=== PATIENT | male | born 1935 | race Caucasian/White ===

== ENCOUNTER 2020-05-29 16:42 | Inpatient (IN) | payer MEDICARE ==
[~2020-05-29] VITALS: Ht 175.3 cm; Wt 86.5 kg
[2020-05-29 20:00] VITALS: BP 162/78
[2020-05-29] MEDS: NS 1,000 ML IV SCH (20:50)
[2020-05-29] MEDS ORDERED: HumaLOG INSULIN (NovoLOG) PER UNIT SC SCH (21:00)
[2020-05-29] MEDS: HEPARIN SOD (PORCINE) 5000UNITS/ML 1ML VIAL/SYRINGE SC SCH (21:00)
[2020-05-29] MEDS ORDERED: ACETAMINOPHEN TAB 650MG DOSE (2X325MG) PO PRN (21:00)
[2020-05-29] MEDS ORDERED: GLUCAGON INJ 1MG VIAL SC PRN (21:45)
[2020-05-29] MEDS ORDERED: DEXTROSE 50% 50 ML SYRINGE IV PRN (21:45)
[2020-05-29] MEDS ORDERED: GLUCOSE 4GM CHEW TABLET PO PRN (21:45)
--- NOTE | 2020-05-29 21:45 | HPEPDOC ---
[facility] Medical History & Physical Date of Admission May 29, 2020 Date of Service: May 29, 2020 History and Physical CHIEF COMPLAINT: Transfer for near syncope and hyponatremia HISTORY OF PRESENT ILLNESS: Patient is a 4-year-old male with history of diabetes type 2, hypertension, CAD c/b IA, dementia, GERD, depression who presents from outside hospital for near syncope and hyponatremia. Patient recently discharged from hospital for after being treated for hyponatremia and fall at home. Patient says he went home, felt very weak and had a near-syncopal episode at home due to extreme weakness. Patient presented to the emergency room for further evaluation and treatment. Patient presented to Outside Hospital was found to be hyponatremic to 116, chloride 83, mag 1.2. As the patient was recently treated at outside hospital for similar presentation of hyponatremia and had a rapid decline back to hyponatremic state patient was transferred to [facility] for ongoing evaluation and treatment. Patient endorses lightheadedness and dizziness during the episode, but otherwise denies any fevers, chills, chest pain, difficulty breathing, nausea, vomiting, abdominal pain, dysuria, diarrhea, leg pain or swelling. Patient has any cough or sore throat but does note feeling dry mouth. PAST MEDICAL HISTORY: 1. Diabetes type 2. 2., Hypertension. 3., CAD. 4. Dementia. 5. Depression. 6. GERD PAST SURGICAL HISTORY: Patient denies any surgical history SOCIAL HISTORY: Marital status: , lives with Tobacco use: Former smoker ETOH: Former heavy EtOH use Illicit drug use: Denies any illicit drug use FAMILY HISTORY: Diabetes ALLERGIES: Please see below. REVIEW OF SYSTEMS: 14 point ROS reviewed and pertinent pos and neg documented as per HPI. All other reviewed ROS neg. HOME MEDICATIONS: Please see below. PHYSICAL EXAMINATION: VITAL SIGNS: See below GENERAL APPEARANCE: Confused appearing man laying in bed in no acute distress, pleasant on interview, appears younger than stated age HEENT: PERRL, EOMI, OP clear, dry mucous membranes, fissured tongue CARDIOVASCULAR:. RRR, normal S1/2, + murmur. LUNGS: CTA B/L, no W/R/R. ABDOMEN: Soft, nontender, nondistended. MUSCULOSKELETAL:, Normal tone. EXTREMITIES:. Intact distal pulses, no edema. NEUROLOGICAL: Strength appears to be intact, sensation intact, cranial nerves intact PSYCHIATRIC: Intermittently confused during my evaluation, mood appropriate LABORATORY DATA: See below. IMAGING: Chest x-ray pending MICROBIOLOGY: Please see below. ASSESSMENT: Patient is a 84-year-old male with history of diabetes type 2, hypertension, CAD c/b IA, dementia, GERD, depression who presents from outside hospital for near syncope and hyponatremia to 116 in the setting of recent discharge from the hospital with similar presentation. Suspect patient's presentation related to hypovolemic hyponatremia, unclear etiology. While citalopram can cause hyponatremia it is a fairly rare occurrence but will stop citalopram given repeat occurrences of hyponatremia. Will hydrate trend BMP. . PLAN: #Hypovolemic hyponatremia Admit to inpatient with telemetry. Intravenous fluids Trend BMP for sodium Monitor neurologic exam. Monitor mental status exam. Follow up chest x-ray #Hypomagnesemia. And magnesium 1.2 at outside hospital labs Status post magnesium repletion Trend magnesium #Diabetes. Fingerstick glucose Insulin sliding scale. ADA/cardiac diet #CAD Continue home meds #Depression. Will hold citalopram in the setting of hyponatremia Continue to monitor #GERD. Continue home meds #Hypertension Trend BP Continue home meds #Dementia. Continue home meds DVT PPX: Lovenox Disposition: Home pending clinical improvement Vital Signs Vital Signs Date Time Temp Pulse Resp B/P (MAP) Pulse Ox O2 Delivery O2 Flow Rate FiO2 05/29/20 20:00 96.6 76 18 162/78 (106) 94 JEANNETTE REAL MD May 29, 2020 21:45
[2020-05-29 22:01] LABS: HEMATOCRIT 32.3 % (42.0-52.0); MEAN CORPUSCULAR HEMOGLOBIN 29.9 pg (27.0-33.0); MEAN CORPUSCULAR HGB CONC 34.1 g/dl (32.0-36.5); MEAN CORPUSCULAR VOLUME 87.8 fl (80.0-96.0); PLATELET COUNT, AUTOMATED 373 10^3/uL (150-450); RED BLOOD COUNT 3.68 10^6/uL (4.30-6.10); WHITE BLOOD COUNT 11.7 10^3/uL (4.0-10.0)
[2020-05-29] MEDS ORDERED: LOSA25TA14 PO (22:22)
[2020-05-29] MEDS ORDERED: ASPI-161 PO (22:22)
[2020-05-29] MEDS ORDERED: METF-877 PO (22:22)
[2020-05-29] MEDS ORDERED: FLON1SPR (22:22)
[2020-05-29] MEDS ORDERED: DOCU100C16 PO (22:22)
[2020-05-29] MEDS ORDERED: MELO15TA28 PO (22:22)
[2020-05-29] MEDS ORDERED: OMEP-221 PO (22:29)
[2020-05-29] MEDS ORDERED: MELA3TAB30 PO (22:29)
[2020-05-29] MEDS ORDERED: CELE40TA PO (22:29)
[2020-05-29] MEDS ORDERED: BUSP15TA47 PO (22:29)
[2020-05-29] MEDS ORDERED: SIMV40TA20 PO (22:29)
[2020-05-29] MEDS ORDERED: MAGN400T3 PO (22:29)
[2020-05-29] MEDS ORDERED: VITA500T41 PO (22:29)
[2020-05-29] MEDS ORDERED: VITATAB73 PO (22:29)
[2020-05-29] MEDS ORDERED: CALC500T61 PO (22:29)
[2020-05-29] MEDS ORDERED: DONE10TA90 PO (22:29)
[2020-05-29] MEDS ORDERED: GLIP5TAB8 PO (22:29)
[2020-05-29] MEDS ORDERED: SODI1TAB6 PO (22:29)
[2020-05-29] MEDS ORDERED: VITMTA PO (22:29)
[2020-05-29] MEDS ORDERED: GABA-845 PO (22:29)
[2020-05-29] MEDS ORDERED: BUSP10TA PO (22:29)
[2020-05-29 22:42] LABS: ALBUMIN 3.2 GM/DL (3.2-5.2); ALT/SGPT 25 U/L (12-78); BILIRUBIN,TOTAL 0.3 MG/DL (0.2-1.0); BLOOD UREA NITROGEN 12 MG/DL (7-18); CALCIUM LEVEL 8.6 MG/DL (8.8-10.2); CARBON DIOXIDE LEVEL 27 MEQ/L (21-32); CHLORIDE LEVEL 86 MEQ/L (98-107); GLOMERULAR FILTRATION RATE > 60.0 (>35); GLUCOSE, FASTING 126 MG/DL (70-100); MAGNESIUM LEVEL 1.6 MG/DL (1.8-2.4); POTASSIUM SERUM 4.1 MEQ/L (3.5-5.1); SODIUM LEVEL 120 MEQ/L (136-145); TOTAL PROTEIN 6.4 GM/DL (6.4-8.2)
[2020-05-29 23:23] LABS: CREATININE,RANDOM URINE 44.8 MG/DL
[2020-05-30] VITALS: BP 152/84
[2020-05-30 04:00] VITALS: BP 138/70
[2020-05-30] MEDS: NS 1,000 ML IV SCH (04:40)
[2020-05-30 05:19] LABS: HEMATOCRIT 28.1 % (42.0-52.0); HEMOGLOBIN 9.5 g/dl (13.5-17.5); MEAN CORPUSCULAR HEMOGLOBIN 29.4 pg (27.0-33.0); MEAN CORPUSCULAR HGB CONC 33.8 g/dl (32.0-36.5); PLATELET COUNT, AUTOMATED 305 10^3/uL (150-450); RED BLOOD COUNT 3.23 10^6/uL (4.30-6.10); WHITE BLOOD COUNT 8.7 10^3/uL (4.0-10.0)
[2020-05-30 05:41] LABS: BLOOD UREA NITROGEN 8 MG/DL (7-18); CALCIUM LEVEL 7.8 MG/DL (8.8-10.2); CARBON DIOXIDE LEVEL 26 MEQ/L (21-32); CHLORIDE LEVEL 89 MEQ/L (98-107); CREATININE FOR GFR 0.75 MG/DL (0.70-1.30); GLOMERULAR FILTRATION RATE > 60.0 (>35); GLUCOSE, FASTING 124 MG/DL (70-100); MAGNESIUM LEVEL 1.6 MG/DL (1.8-2.4); POTASSIUM SERUM 3.6 MEQ/L (3.5-5.1); SODIUM LEVEL 123 MEQ/L (136-145)
[2020-05-30] MEDS ORDERED: HumaLOG INSULIN (NovoLOG) PER UNIT SC SCH (07:30)
--- NOTE | 2020-05-30 07:31 | REP ---
Clinical: Hyponatremia. Comparison: None. Findings: Mediastinum and cardiac silhouette are within normal limits for portable technique. Lung arenas are are relatively clear without focal consolidation, effusion, or pneumothorax. Skeletal structures demonstrate age-related osteopenia and degenerative changes. Impression: No focal consolidation or effusion. Electronically Signed by Yariel Wright MD 05/30/2020 07:21 A
[2020-05-30 08:00] VITALS: BP 162/80
[2020-05-30] MEDS: MAG SULF 1GM/100ML (MAG RUN) 1 GM in IV 1 EA IV SCH ×2 (09:00→09:37)
[2020-05-30] MEDS ORDERED: D5W 1,000 ML IV SCH (09:00)
[2020-05-30 09:29] LABS: BLOOD UREA NITROGEN 8 MG/DL (7-18); CALCIUM LEVEL 8.6 MG/DL (8.8-10.2); CARBON DIOXIDE LEVEL 27 MEQ/L (21-32); CHLORIDE LEVEL 90 MEQ/L (98-107); CREATININE FOR GFR 0.86 MG/DL (0.70-1.30); GLOMERULAR FILTRATION RATE > 60.0 (>35); GLUCOSE, FASTING 167 MG/DL (70-100); POTASSIUM SERUM 4.1 MEQ/L (3.5-5.1); SODIUM LEVEL 123 MEQ/L (136-145)
[2020-05-30] MEDS: HEPARIN SOD (PORCINE) 5000UNITS/ML 1ML VIAL/SYRINGE SC SCH (09:38)
[2020-06-01] MEDS ORDERED: GABAPENTIN 400 MG CAP As Ordered ONE ×2 (08:27→21:48)
[2020-06-01] MEDS ORDERED: CYANOCOBALAMIN 500 MCG TAB As Ordered ONE ×2 (08:28→21:48)
[2020-06-01] MEDS ORDERED: ASPIRIN 81 MG ENTERIC TAB ONE (08:28)
[2020-06-01] MEDS ORDERED: OYSTER SHELL CALCIUM 500 MG TAB ONE ×2 (08:28→21:48)
[2020-06-01] MEDS ORDERED: OMEPRAZOLE 20 MG CAP As Ordered ONE (08:28)
[2020-06-01] MEDS ORDERED: GABAPENTIN 400 MG CAP ONE ×2 (08:28→21:48)
[2020-06-01] MEDS ORDERED: OMEPRAZOLE 20 MG CAP ONE (08:28)
[2020-06-01] MEDS ORDERED: CYANOCOBALAMIN 500 MCG TAB ONE ×2 (08:28→21:48)
[2020-06-01] MEDS ORDERED: busPIRone 10 MG TAB ONE ×2 (08:28→11:30)
[2020-06-01] MEDS ORDERED: ASPIRIN 81 MG ENTERIC TAB As Ordered ONE (08:29)
[2020-06-01] MEDS ORDERED: busPIRone 5 MG TAB ONE ×2 (11:30→21:48)
[2020-06-01] MEDS ORDERED: SODIUM CHLORIDE 1 GM TAB ONE ×2 (13:59→21:48)
[2020-06-01] MEDS ORDERED: MAGNESIUM OXIDE 400 MG TAB (MAG-OX) ONE ×2 (14:02→21:48)
[2020-06-01] MEDS ORDERED: MAGNESIUM OXIDE 400 MG TAB (MAG-OX) As Ordered ONE ×2 (14:02→21:48)
[2020-06-01] MEDS ORDERED: LOSARTAN 25 MG TAB ONE (21:48)
[2020-06-01] MEDS ORDERED: LOSARTAN 25 MG TAB As Ordered ONE (21:48)
[2020-06-01] MEDS ORDERED: RAMELTEON 8 MG TAB (ROZEREM) ONE (21:48)
[2020-06-01] MEDS ORDERED: HEPARIN SOD (PORCINE) 5000UNITS/ML 1ML VIAL/SYRINGE ONE (21:48)
[2020-06-01] MEDS ORDERED: SIMVASTATIN 40 MG TAB ONE (21:48)
[2020-06-01] MEDS ORDERED: RAMELTEON 8 MG TAB (ROZEREM) As Ordered ONE (21:48)
[2020-06-01] MEDS ORDERED: SIMVASTATIN 40 MG TAB As Ordered ONE (21:49)
[2020-06-02] MEDS ORDERED: HEPARIN SOD (PORCINE) 5000UNITS/ML 1ML VIAL/SYRINGE ONE ×2 (10:21→20:24)
[2020-06-02] MEDS ORDERED: OYSTER SHELL CALCIUM 500 MG TAB ONE ×2 (10:21→20:24)
[2020-06-02] MEDS ORDERED: GABAPENTIN 400 MG CAP As Ordered ONE ×2 (10:21→20:24)
[2020-06-02] MEDS ORDERED: busPIRone 10 MG TAB ONE (10:21)
[2020-06-02] MEDS ORDERED: DOCUSATE SODIUM 100 MG CAP As Ordered ONE (10:21)
[2020-06-02] MEDS ORDERED: OMEPRAZOLE 20 MG CAP As Ordered ONE (10:21)
[2020-06-02] MEDS ORDERED: SODIUM CHLORIDE 1 GM TAB ONE (10:21)
[2020-06-02] MEDS ORDERED: MAGNESIUM OXIDE 400 MG TAB (MAG-OX) As Ordered ONE (10:22)
[2020-06-02] MEDS ORDERED: CYANOCOBALAMIN 500 MCG TAB As Ordered ONE ×2 (10:22→20:25)
[2020-06-02] MEDS ORDERED: ASPIRIN 81 MG ENTERIC TAB As Ordered ONE (10:23)
[2020-06-02] MEDS ORDERED: HumaLOG INSULIN (NovoLOG) PER UNIT ONE ×2 (11:47→17:16)
[2020-06-02] MEDS ORDERED: busPIRone 5 MG TAB ONE (20:24)
[2020-06-02] MEDS ORDERED: SIMVASTATIN 40 MG TAB As Ordered ONE (20:25)
[2020-06-02] MEDS ORDERED: LOSARTAN 25 MG TAB As Ordered ONE (20:25)
[2020-06-02] MEDS ORDERED: MAGNESIUM SULFATE 1GM/100ML D5W BAG (10MG/ML) As Ordered ONE (20:26)
[2020-06-02] MEDS ORDERED: RAMELTEON 8 MG TAB (ROZEREM) As Ordered ONE (20:31)
[2020-06-03] MEDS ORDERED: GABAPENTIN 400 MG CAP ONE ×2 (07:58→09:09)
[2020-06-03] MEDS ORDERED: HEPARIN SOD (PORCINE) 5000UNITS/ML 1ML VIAL/SYRINGE ONE ×2 (07:58→09:09)
[2020-06-03] MEDS ORDERED: busPIRone 5 MG TAB ONE (07:58)
[2020-06-03] MEDS ORDERED: MAGNESIUM OXIDE 400 MG TAB (MAG-OX) ONE ×2 (07:58→09:09)
[2020-06-03] MEDS ORDERED: OYSTER SHELL CALCIUM 500 MG TAB ONE ×2 (07:58→09:09)
[2020-06-03] MEDS ORDERED: LOSARTAN 25 MG TAB ONE (07:58)
[2020-06-03] MEDS ORDERED: RAMELTEON 8 MG TAB (ROZEREM) ONE (07:58)
[2020-06-03] MEDS ORDERED: CYANOCOBALAMIN 500 MCG TAB ONE ×2 (07:58→09:09)
[2020-06-03] MEDS ORDERED: SIMVASTATIN 40 MG TAB ONE (07:58)
[2020-06-03] MEDS ORDERED: ASPIRIN 81 MG ENTERIC TAB ONE (09:09)
[2020-06-03] MEDS ORDERED: SODIUM CHLORIDE 1 GM TAB ONE (09:09)
[2020-06-03] MEDS ORDERED: MAGNESIUM OXIDE 400 MG TAB (MAG-OX) As Ordered ONE ×2 (09:09→19:58)
[2020-06-03] MEDS ORDERED: GABAPENTIN 400 MG CAP As Ordered ONE ×2 (09:09→19:58)
[2020-06-03] MEDS ORDERED: OMEPRAZOLE 20 MG CAP As Ordered ONE (09:09)
[2020-06-03] MEDS ORDERED: OMEPRAZOLE 20 MG CAP ONE (09:09)
[2020-06-03] MEDS ORDERED: busPIRone 10 MG TAB ONE (09:09)
[2020-06-03] MEDS ORDERED: HumaLOG INSULIN (NovoLOG) PER UNIT ONE (09:09)
[2020-06-03] MEDS ORDERED: CYANOCOBALAMIN 500 MCG TAB As Ordered ONE ×2 (09:10→19:59)
[2020-06-03] MEDS ORDERED: ASPIRIN 81 MG ENTERIC TAB As Ordered ONE (09:11)
[2020-06-03] MEDS ORDERED: CALCIUM/VITAMIN D 500 MG TAB ONE (11:30)
[2020-06-03] MEDS ORDERED: RAMELTEON 8 MG TAB (ROZEREM) As Ordered ONE (19:58)
[2020-06-03] MEDS ORDERED: SIMVASTATIN 40 MG TAB As Ordered ONE (19:59)
[2020-06-03] MEDS ORDERED: LOSARTAN 25 MG TAB As Ordered ONE (19:59)
[2020-06-04] MEDS ORDERED: OYSTER SHELL CALCIUM 500 MG TAB ONE (08:12)
[2020-06-04] MEDS ORDERED: HEPARIN SOD (PORCINE) 5000UNITS/ML 1ML VIAL/SYRINGE ONE (08:12)
[2020-06-04] MEDS ORDERED: busPIRone 10 MG TAB ONE (08:12)
[2020-06-04] MEDS ORDERED: GABAPENTIN 400 MG CAP As Ordered ONE (08:12)
[2020-06-04] MEDS ORDERED: SODIUM CHLORIDE 1 GM TAB ONE (08:12)
[2020-06-04] MEDS ORDERED: MAGNESIUM OXIDE 400 MG TAB (MAG-OX) ONE (08:12)
[2020-06-04] MEDS ORDERED: OMEPRAZOLE 20 MG CAP As Ordered ONE (08:12)
[2020-06-04] MEDS ORDERED: HumaLOG INSULIN (NovoLOG) PER UNIT ONE (08:12)
[2020-06-04] MEDS ORDERED: MAGNESIUM OXIDE 400 MG TAB (MAG-OX) As Ordered ONE (08:13)
[2020-06-04] MEDS ORDERED: CYANOCOBALAMIN 500 MCG TAB As Ordered ONE (08:14)
[2020-06-04] MEDS ORDERED: ASPIRIN 81 MG ENTERIC TAB As Ordered ONE (08:15)
[2020-07-10 10:46] LABS: HEMATOCRIT 51.2 % (42.0-52.0); HEMOGLOBIN 16.3 g/dl (13.5-17.5); MEAN CORPUSCULAR HEMOGLOBIN 29.4 pg (27.0-33.0); MEAN CORPUSCULAR HGB CONC 31.8 g/dl (32.0-36.5); MEAN CORPUSCULAR VOLUME 92.4 fl (80.0-96.0); PLATELET COUNT, AUTOMATED 167 10^3/uL (150-450); RED BLOOD COUNT 5.54 10^6/uL (4.30-6.10); WHITE BLOOD COUNT 4.4 10^3/uL (4.0-10.0)
[2020-07-10 13:16] LABS: HEMATOCRIT 29.9 % (42.0-52.0); MEAN CORPUSCULAR HEMOGLOBIN 30.2 pg (27.0-33.0); MEAN CORPUSCULAR HGB CONC 32.8 g/dl (32.0-36.5); PLATELET COUNT, AUTOMATED 409 10^3/uL (150-450); RED BLOOD COUNT 3.25 10^6/uL (4.30-6.10); WHITE BLOOD COUNT 7.1 10^3/uL (4.0-10.0)
[2020-07-10 13:17] LABS: HEMOGLOBIN 9.8 g/dl (13.5-17.5)
[2020-07-13 07:41] LABS: BLOOD UREA NITROGEN 13 MG/DL (7-18); CALCIUM LEVEL 8.9 MG/DL (8.8-10.2); CARBON DIOXIDE LEVEL 30 MEQ/L (21-32); CHLORIDE LEVEL 100 MEQ/L (98-107); CREATININE FOR GFR 0.99 MG/DL (0.70-1.30); GLOMERULAR FILTRATION RATE > 60.0 (>35); GLUCOSE, FASTING 124 MG/DL (70-100); MAGNESIUM LEVEL 1.8 MG/DL (1.8-2.4); POTASSIUM SERUM 4.1 MEQ/L (3.5-5.1); SODIUM LEVEL 135 MEQ/L (136-145)
[2020-07-13 21:23] LABS: BLOOD UREA NITROGEN 15 MG/DL (7-18); CALCIUM LEVEL 9.2 MG/DL (8.8-10.2); CARBON DIOXIDE LEVEL 30 MEQ/L (21-32); CHLORIDE LEVEL 99 MEQ/L (98-107); CREATININE FOR GFR 1.03 MG/DL (0.70-1.30); GLOMERULAR FILTRATION RATE > 60.0 (>35); GLUCOSE, FASTING 132 MG/DL (70-100); MAGNESIUM LEVEL 1.9 MG/DL (1.8-2.4); POTASSIUM SERUM 4.5 MEQ/L (3.5-5.1); SODIUM LEVEL 136 MEQ/L (136-145)
[2020-07-15 22:27] LABS: HEMATOCRIT 31.6 % (42.0-52.0); HEMOGLOBIN 10.2 g/dl (13.5-17.5); MEAN CORPUSCULAR HEMOGLOBIN 29.9 pg (27.0-33.0); MEAN CORPUSCULAR HGB CONC 32.3 g/dl (32.0-36.5); MEAN CORPUSCULAR VOLUME 92.7 fl (80.0-96.0); PLATELET COUNT, AUTOMATED 398 10^3/uL (150-450); RED BLOOD COUNT 3.41 10^6/uL (4.30-6.10); WHITE BLOOD COUNT 7.6 10^3/uL (4.0-10.0)
[2020-07-16 08:16] LABS: GLUCOSE, FASTING 120 MG/DL (70-100)
[2020-07-16 08:17] LABS: BLOOD UREA NITROGEN 12 MG/DL (7-18); CARBON DIOXIDE LEVEL 29 mmol/L (20-29); CHLORIDE LEVEL 101 MEQ/L (98-107); CREATININE FOR GFR 0.95 MG/DL (0.70-1.30); GLOMERULAR FILTRATION RATE > 60.0 (>35); POTASSIUM SERUM 4.6 MEQ/L (3.5-5.1); SODIUM LEVEL 135 MEQ/L (136-145)
[2020-07-16 10:42] LABS: BLOOD UREA NITROGEN 14 MG/DL (7-18); CARBON DIOXIDE LEVEL 30 mmol/L (20-29); CHLORIDE LEVEL 102 MEQ/L (98-107); CREATININE FOR GFR 1.03 MG/DL (0.70-1.30); GLOMERULAR FILTRATION RATE > 60.0 (>35); GLUCOSE, FASTING 115 MG/DL (70-100); POTASSIUM SERUM 4.4 MEQ/L (3.5-5.1); SODIUM LEVEL 136 MEQ/L (136-145)
[2020-07-16 10:43] LABS: CALCIUM LEVEL 8.9 MG/DL (8.8-10.2)
[2020-07-17 14:44] LABS: RED BLOOD COUNT 3.46 10^6/uL (4.30-6.10); WHITE BLOOD COUNT 7.1 10^3/uL (4.0-10.0)
[2020-07-17 14:45] LABS: HEMATOCRIT 31.7 % (42.0-52.0); HEMOGLOBIN 10.4 g/dl (13.5-17.5); MEAN CORPUSCULAR HEMOGLOBIN 30.1 pg (27.0-33.0); MEAN CORPUSCULAR HGB CONC 32.8 g/dl (32.0-36.5); MEAN CORPUSCULAR VOLUME 91.6 fl (80.0-96.0); PLATELET COUNT, AUTOMATED 449 10^3/uL (150-450)
--- NOTE | 2020-08-01 11:33 | ECGEPIP ---
[facility] Test Date: 2020-06-02 Pat Name: PARUL WALTERS Department: Room: [place] [address] Gender: Male [employer]: SHIVANI : 1935 Requested By: TREY Amaya Order Number: [id number] Reading MD: Shawnee Navarro Measurements Intervals [place] Rate: 64 P: 28 NE: 244 QRS: -5 QRSD: 79 T: 79 QT: 428 QTc: 444 Interpretive Statements SINUS RHYTHM WITH FIRST DEGREE AV BLOCK STT ABN LAT LEADS SEE SCANNED DOWNTIME REPORT
== END 2020-06-04 11:20 | disposition home or self-care (01) | DRG 641 ==
LOC: M PCU 20:50
PROVIDERS: ADMIT Internal Medicine; ATTEND Internal Medicine
DX: E87.1 Hypo-osmolality and hyponatremia (principal); R55 Syncope and collapse; E11.9 Type 2 diabetes mellitus without complications; I10 Essential (primary) hypertension; T43.225A Adverse effect of selective serotonin reuptake inhibitors, initial encounter; I25.10 Atherosclerotic heart disease of native coronary artery without angina pectoris; F03.90 Unspecified dementia, unspecified severity, without behavioral disturbance, psychotic disturbance, mood disturbance, and anxiety; F32.9 Major depressive disorder, single episode, unspecified; K21.9 Gastro-esophageal reflux disease without esophagitis; E83.42 Hypomagnesemia; Z79.899 Other long term (current) drug therapy

== ENCOUNTER → 2024-01-14 | Outpatient (REF) | payer MEDICARE ==
[~2024-01-14] MED LIST: ASPI-615 PO; BUSP10TA PO; BUSP15TA47 PO; CALC500T61 PO; CELE40TA PO; DOCU100C16 PO; DONE10TA90 PO; FLON1SPR; GABA-284 PO; GLIP5TAB17 PO; LOSA25TA13 PO; MAGN400T33 PO; MELA3TAB30 PO; MELO15TA28 PO; METF-877 PO; OMEP40CA5 PO; SIMV40TA20 PO; SODI1TAB6 PO; VITA500T41 PO; VITATAB73 PO; VITMTA PO
[2024-01-14 12:21] LABS: BASO % 0.4 % (0.0-1.0); EOS # 0.6 10^3/uL (0.0-0.5); EOS % 8.3 % (0.0-3.0); HEMATOCRIT 39.6 % (42.0-52.0); HEMOGLOBIN 12.8 g/dl (13.5-17.5); LYMPH % 13.4 % (24.0-44.0); MEAN CORPUSCULAR HEMOGLOBIN 29.4 pg (27.0-33.0); MEAN CORPUSCULAR HGB CONC 32.3 g/dl (32.0-36.5); MONO # 0.9 10^3/uL (0.0-0.8); MONO % 12.2 % (2.0-8.0); NEUTROPHILS # 4.7 10^3/uL (1.5-8.5); NEUTROPHILS % 65.1 % (36.0-66.0); PLATELET COUNT, AUTOMATED 312 10^3/uL (150-450); RED BLOOD COUNT 4.35 10^6/uL (4.30-6.10); WHITE BLOOD COUNT 7.2 10^3/uL (4.0-10.0)
[2024-01-14 13:33] LABS: BLOOD UREA NITROGEN 30 MG/DL (9-23); CALCIUM LEVEL 8.2 MG/DL (8.3-10.6); CARBON DIOXIDE LEVEL 21 MMOL/L (20-31); CHLORIDE LEVEL 105 MMOL/L (98-107); CREATININE FOR GFR 1.02 MG/DL (0.70-1.30); GLOMERULAR FILTRATION RATE > 60.0 (>35); GLUCOSE, FASTING 106 MG/DL (74-106); POTASSIUM SERUM 4.3 MMOL/L (3.5-5.1); SODIUM LEVEL 134 MMOL/L (136-145)
== END ==
LOC: SKLAB2 11:18
PROVIDERS: ATTEND Internal Medicine
DX: R11.2 Nausea with vomiting, unspecified (principal); R19.7 Diarrhea, unspecified

== ENCOUNTER → 2024-01-17 | Outpatient (REF) | payer MEDICARE ==
[2024-01-17 13:07] LABS: BLOOD UREA NITROGEN 18 MG/DL (9-23); CALCIUM LEVEL 7.8 MG/DL (8.3-10.6); CARBON DIOXIDE LEVEL 22 MMOL/L (20-31); CHLORIDE LEVEL 104 MMOL/L (98-107); CREATININE FOR GFR 0.87 MG/DL (0.70-1.30); GLOMERULAR FILTRATION RATE > 60.0 (>35); GLUCOSE, FASTING 104 MG/DL (74-106); POTASSIUM SERUM 4.6 MMOL/L (3.5-5.1); SODIUM LEVEL 133 MMOL/L (136-145)
== END ==
LOC: SKLAB2 11:43
PROVIDERS: ATTEND Internal Medicine
DX: K52.9 Noninfective gastroenteritis and colitis, unspecified (principal)

== ENCOUNTER → 2024-02-08 | Outpatient (REF) | payer MEDICARE ==
[2024-02-08 13:51] LABS: ALBUMIN 3.1 G/DL (3.2-5.2); ALKALINE PHOSPHATASE 95 U/L (46-116); ALT/SGPT 10 U/L (7.0-40); AST/SGOT 13 U/L (<34); BILIRUBIN,TOTAL 0.5 MG/DL (0.3-1.2); BLOOD UREA NITROGEN 18 MG/DL (9-23); CALCIUM LEVEL 9.6 MG/DL (8.3-10.6); CARBON DIOXIDE LEVEL 28 MMOL/L (20-31); CHLORIDE LEVEL 98 MMOL/L (98-107); CREATININE FOR GFR 0.96 MG/DL (0.70-1.30); GLOMERULAR FILTRATION RATE > 60.0 (>35); GLUCOSE, FASTING 112 MG/DL (74-106); POTASSIUM SERUM 4.7 MMOL/L (3.5-5.1); SODIUM LEVEL 131 MMOL/L (136-145); TOTAL PROTEIN 6.3 G/DL (5.7-8.2)
== END ==
LOC: SKLAB2 07:53
PROVIDERS: ATTEND Internal Medicine
DX: I10 Essential (primary) hypertension (principal)

== ENCOUNTER → 2024-02-24 | Outpatient (REF) | payer MEDICARE | LOC: SKLAB4 15:52 | PROVIDERS: ATTEND Internal Medicine | DX: R91.8 Other nonspecific abnormal finding of lung field (principal) ==

== ENCOUNTER → 2024-02-24 | Outpatient (REF) | payer MEDICARE ==
[~2024-02-24] MED LIST changes: +ASPE4PAD TOP; +ASPI81CH33 PO; +ATOR1TAB21 PO; +CYMB1CAP4 PO; +LOPR1TAB6 PO
[2024-02-24 15:04] LABS: HEMATOCRIT 37.9 % (42.0-52.0); MEAN CORPUSCULAR HEMOGLOBIN 27.7 pg (27.0-33.0); MEAN CORPUSCULAR HGB CONC 31.7 g/dl (32.0-36.5); MEAN CORPUSCULAR VOLUME 87.5 fl (80.0-96.0); PLATELET COUNT, AUTOMATED 357 10^3/uL (150-450); RED BLOOD COUNT 4.33 10^6/uL (4.30-6.10)
[2024-02-24 15:36] LABS: ALBUMIN 3.1 G/DL (3.2-5.2); ALKALINE PHOSPHATASE 96 U/L (46-116); ALT/SGPT < 9 U/L (7.0-40); AST/SGOT 14 U/L (<34); BILIRUBIN,TOTAL 0.5 MG/DL (0.3-1.2); BLOOD UREA NITROGEN 23 MG/DL (9-23); CALCIUM LEVEL 9.5 MG/DL (8.3-10.6); CARBON DIOXIDE LEVEL 27 MMOL/L (20-31); CHLORIDE LEVEL 97 MMOL/L (98-107); CHOLESTEROL LEVEL 93 MG/DL (<200); CHOLESTEROL RISK RATIO 2.26 (<5); GLOMERULAR FILTRATION RATE > 60.0 (>35); GLUCOSE, FASTING 147 MG/DL (74-106); LDL CHOLESTEROL 27.8 MG/DL (<100); POTASSIUM SERUM 4.9 MMOL/L (3.5-5.1); SODIUM LEVEL 128 MMOL/L (136-145); TOTAL PROTEIN 6.1 G/DL (5.7-8.2); TRIGLYCERIDES LEVEL 121 MG/DL (<150)
[2024-02-24 16:55] LABS: MAGNESIUM LEVEL 1.7 MG/DL (1.8-2.4)
== END ==
LOC: SKLAB4 14:18
PROVIDERS: ATTEND Internal Medicine
DX: E78.5 Hyperlipidemia, unspecified (principal); R42 Dizziness and giddiness; R53.83 Other fatigue; R91.8 Other nonspecific abnormal finding of lung field; R94.31 Abnormal electrocardiogram [ECG] [EKG]

== ENCOUNTER → 2024-02-25 | Outpatient (REF) | payer MEDICARE ==
[2024-02-25 13:25] LABS: OSMOLALITY SERUM 284 MOSM/KG (280-301)
[2024-02-25 13:27] LABS: BLOOD UREA NITROGEN 21 MG/DL (9-23); CARBON DIOXIDE LEVEL 28 MMOL/L (20-31); CHLORIDE LEVEL 99 MMOL/L (98-107); CREATININE FOR GFR 0.86 MG/DL (0.70-1.30); GLOMERULAR FILTRATION RATE > 60.0 (>35); GLUCOSE, FASTING 154 MG/DL (74-106); POTASSIUM SERUM 4.9 MMOL/L (3.5-5.1); SODIUM LEVEL 128 MMOL/L (136-145)
== END ==
LOC: SKLAB4 10:48
PROVIDERS: ATTEND Nurse Practitioner Family
DX: R06.02 Shortness of breath (principal)

== ENCOUNTER → 2024-02-25 | Outpatient (CLI) | payer MEDICARE, MEDICAID ==
[~2024-02-25] MED LIST changes: +ACET-907 PO; +ACET650T61 PO; +ELIQ5TAB PO; +GABA-282 PO; +LIDO1CRE2 TOP; +MAGN400T2 PO; +MELA3TAB29 PO; +METO50TA7 PO
== END ==
LOC: M EKG 10:17
PROVIDERS: ATTEND Internal Medicine
DX: I48.91 Unspecified atrial fibrillation (principal)

== ENCOUNTER 2024-02-27 13:16 | Emergency (ER) | payer MEDICARE ==
[~2024-02-27] VITALS: Ht 172.7 cm; Wt 78.1 kg
[~2024-02-27 13:16] MED LIST changes: -ACET-907 PO; -ACET650T61 PO; -ASPE4PAD TOP; -ASPI81CH33 PO; -ATOR1TAB21 PO; -CYMB1CAP4 PO; -ELIQ5TAB PO; -GABA-282 PO; -LIDO1CRE2 TOP; -LOPR1TAB6 PO; -MAGN400T2 PO; -MELA3TAB29 PO; -METO50TA7 PO
[2024-02-27 13:30] VITALS: TEMP 98.5
[2024-02-27 14:20] LABS: BASO % 0.4 % (0.0-1.0); EOS # 0.4 10^3/uL (0.0-0.5); EOS % 3.7 % (0.0-3.0); HEMATOCRIT 40.2 % (42.0-52.0); HEMOGLOBIN 13.2 g/dl (13.5-17.5); LYMPH % 21.2 % (24.0-44.0); MEAN CORPUSCULAR HEMOGLOBIN 27.7 pg (27.0-33.0); MEAN CORPUSCULAR HGB CONC 32.8 g/dl (32.0-36.5); MEAN CORPUSCULAR VOLUME 84.5 fl (80.0-96.0); MONO # 1.1 10^3/uL (0.0-0.8); MONO % 11.5 % (2.0-8.0); NEUTROPHILS # 5.9 10^3/uL (1.5-8.5); NEUTROPHILS % 62.9 % (36.0-66.0); PLATELET COUNT, AUTOMATED 375 10^3/uL (150-450); RED BLOOD COUNT 4.76 10^6/uL (4.30-6.10); WHITE BLOOD COUNT 9.4 10^3/uL (4.0-10.0)
[2024-02-27 14:35] LABS: LIPASE 35 U/L (12-53)
[2024-02-27 14:40] LABS: ALBUMIN 3.3 G/DL (3.2-5.2); ALKALINE PHOSPHATASE 110 U/L (46-116); ALT/SGPT 17 U/L (7.0-40); AST/SGOT 14 U/L (<34); BILIRUBIN,DIRECT 0.4 MG/DL (<0.4); BILIRUBIN,TOTAL 0.9 MG/DL (0.3-1.2); BLOOD UREA NITROGEN 20 MG/DL (9-23); CALCIUM LEVEL 9.5 MG/DL (8.3-10.6); CARBON DIOXIDE LEVEL 24 MMOL/L (20-31); CHLORIDE LEVEL 97 MMOL/L (98-107); GLOMERULAR FILTRATION RATE > 60.0 (>35); GLUCOSE, FASTING 144 MG/DL (74-106); POTASSIUM SERUM 4.3 MMOL/L (3.5-5.1); SODIUM LEVEL 129 MMOL/L (136-145); TOTAL PROTEIN 6.6 G/DL (5.7-8.2)
[2024-02-27 14:53] VITALS: BP 219/98
[2024-02-27] MEDS: METOPROLOL TART 50 MG TAB PO ONE (14:53)
[2024-02-27] MEDS ORDERED: LOPR1TAB6 PO (15:25)
[2024-02-27 15:29] VITALS: O2SAT 90
[2024-02-27] MEDS ORDERED: MED REC IN PROGRESS XX SCH (15:30)
[2024-02-27] MEDS ORDERED: CYMB1CAP4 PO ×2 (15:41)
[2024-02-27] MEDS ORDERED: ATOR1TAB21 PO (15:41)
[2024-02-27] MEDS ORDERED: ASPI81CH33 PO (15:41)
[2024-02-27] MEDS ORDERED: ASPE4PAD TOP (15:45)
[2024-02-27] MEDS ORDERED: HOME MED LIST COMPLETE! XX SCH (16:00)
[2024-02-27 16:12] VITALS: BP 152/65
== END 2024-02-27 16:32 | disposition home or self-care (01) ==
LOC: M ED 13:16
DX: I48.91 Unspecified atrial fibrillation (principal); I10 Essential (primary) hypertension; I25.2 Old myocardial infarction; I25.119 Atherosclerotic heart disease of native coronary artery with unspecified angina pectoris; E11.9 Type 2 diabetes mellitus without complications; Z88.0 Allergy status to penicillin; Z88.8 Allergy status to other drugs, medicaments and biological substances; Z79.899 Other long term (current) drug therapy

== ENCOUNTER → 2024-02-28 | Outpatient (REF) | payer MEDICARE ==
[~2024-02-28] MED LIST changes: +ACET-907 PO; +ACET650T61 PO; +ASPE4PAD TOP; +ASPI81CH33 PO; +ATOR1TAB21 PO; +CYMB1CAP4 PO; +ELIQ5TAB PO; +GABA-282 PO; +LIDO1CRE2 TOP; +LOPR1TAB6 PO; +MAGN400T2 PO; +MELA3TAB29 PO; +METO50TA7 PO
[2024-02-28 14:24] LABS: ALBUMIN 3.5 G/DL (3.2-5.2); ALKALINE PHOSPHATASE 109 U/L (46-116); ALT/SGPT 17 U/L (7.0-40); AST/SGOT 14 U/L (<34); BILIRUBIN,TOTAL 0.5 MG/DL (0.3-1.2); BLOOD UREA NITROGEN 25 MG/DL (9-23); CALCIUM LEVEL 9.8 MG/DL (8.3-10.6); CARBON DIOXIDE LEVEL 24 MMOL/L (20-31); CHLORIDE LEVEL 94 MMOL/L (98-107); CREATININE FOR GFR 0.87 MG/DL (0.70-1.30); GLOMERULAR FILTRATION RATE > 60.0 (>35); GLUCOSE, FASTING 187 MG/DL (74-106); POTASSIUM SERUM 4.7 MMOL/L (3.5-5.1); PTH INTACT 45.7 PG/ML (18.5-88.0); SODIUM LEVEL 127 MMOL/L (136-145); TOTAL PROTEIN 6.8 G/DL (5.7-8.2)
[2024-02-28 15:01] LABS: VITAMIN B12 LEVEL > 2000 PG/ML (211-911)
== END ==
LOC: SKLAB4 12:32
PROVIDERS: ATTEND Nurse Practitioner Family
DX: E53.8 Deficiency of other specified B group vitamins (principal); E87.5 Hyperkalemia; E87.1 Hypo-osmolality and hyponatremia

== ENCOUNTER 2024-02-29 13:06 | Inpatient (IN) | payer MEDICARE ==
[~2024-02-29] VITALS: Ht 170.2 cm; Wt 80.8 kg
[~2024-02-29 13:06] MED LIST changes: -ACET-907 PO; -ACET650T61 PO; -ELIQ5TAB PO; -GABA-282 PO; -LIDO1CRE2 TOP; -MAGN400T2 PO; -MELA3TAB29 PO; -METO50TA7 PO
[2024-02-29 14:10] LABS: BASO % 0.4 % (0.0-1.0); EOS # 0.4 10^3/uL (0.0-0.5); EOS % 3.5 % (0.0-3.0); HEMATOCRIT 37.6 % (42.0-52.0); HEMOGLOBIN 12.3 g/dl (13.5-17.5); LYMPH # 2.3 10^3/uL (1.5-5.0); MEAN CORPUSCULAR HEMOGLOBIN 28.3 pg (27.0-33.0); MEAN CORPUSCULAR HGB CONC 32.7 g/dl (32.0-36.5); MEAN CORPUSCULAR VOLUME 86.4 fl (80.0-96.0); MONO # 1.2 10^3/uL (0.0-0.8); MONO % 11.8 % (2.0-8.0); NEUTROPHILS % 60.9 % (36.0-66.0); PLATELET COUNT, AUTOMATED 373 10^3/uL (150-450); RED BLOOD COUNT 4.35 10^6/uL (4.30-6.10); WHITE BLOOD COUNT 9.9 10^3/uL (4.0-10.0)
[2024-02-29] MEDS ORDERED: ISOVUE-370 76% 100ML VIAL As Ordered ONE (14:32)
[2024-02-29 15:05] LABS: LIPASE 49 U/L (12-53)
[2024-02-29 15:06] LABS: OSMOLALITY SERUM 281 MOSM/KG (280-301)
[2024-02-29] MEDS: NS 500 ML IV ONE (15:15)
[2024-02-29 15:22] LABS: ALBUMIN 3.2 G/DL (3.2-5.2); ALKALINE PHOSPHATASE 94 U/L (46-116); ALT/SGPT 10 U/L (7.0-40); AST/SGOT 12 U/L (<34); BILIRUBIN,DIRECT 0.2 MG/DL (<0.4); BILIRUBIN,TOTAL 0.5 MG/DL (0.3-1.2); BLOOD UREA NITROGEN 22 MG/DL (9-23); CALCIUM LEVEL 9.1 MG/DL (8.3-10.6); CARBON DIOXIDE LEVEL 26 MMOL/L (20-31); CHLORIDE LEVEL 97 MMOL/L (98-107); CK-MB VALUE MASS 2.7 NG/ML (<3.6); CPK CREATINE PHOSPHOKINASE 52 U/L (46-171); CREATININE FOR GFR 0.85 MG/DL (0.70-1.30); FREE T4 1.12 NG/DL (0.89-1.76); GLOMERULAR FILTRATION RATE > 60.0 (>35); GLUCOSE, FASTING 170 MG/DL (74-106); MAGNESIUM LEVEL 1.8 MG/DL (1.8-2.4); MB/CK RELATIVE INDEX 5.19 (< OR =4); POTASSIUM SERUM 4.5 MMOL/L (3.5-5.1); SODIUM LEVEL 129 MMOL/L (136-145); THYROID STIMULATING HORMONE 0.488 uIU/ML (0.55-4.78)
[2024-02-29 16:04] LABS: CK-MB VALUE MASS 2.3 NG/ML (<3.6)
[2024-02-29 16:06] LABS: MB/CK RELATIVE INDEX 4.42 (< OR =4)
[2024-02-29] MEDS ORDERED: MELA3TAB29 PO (17:34)
[2024-02-29] MEDS ORDERED: GABA-282 PO (17:34)
[2024-02-29] MEDS ORDERED: ELIQ5TAB PO (17:34)
[2024-02-29] MEDS ORDERED: METO50TA7 PO (17:34)
[2024-02-29] MEDS ORDERED: ACET-907 PO (17:34)
[2024-02-29] MEDS ORDERED: MAGN400T2 PO (17:34)
[2024-02-29] MEDS ORDERED: ACET650T61 PO (17:34)
[2024-02-29] MEDS ORDERED: BUSP15TA47 PO (17:34)
[2024-02-29] MEDS ORDERED: LIDO1CRE2 TOP (17:34)
[2024-02-29] MEDS ORDERED: HOME MED LIST COMPLETE! XX SCH (17:35)
[2024-02-29] MEDS: NS 1,000 ML IV ONE (18:15)
[2024-02-29 18:55] LABS: CREATININE,RANDOM URINE 50.4 MG/DL
[2024-02-29 19:26] LABS: URIC ACID 4.5 MG/DL (3.7-9.2)
[2024-02-29] MEDS: busPIRone 5 MG TAB PO SCH (20:37)
[2024-02-29] MEDS: GABAPENTIN 100 MG CAP PO SCH (20:37)
[2024-02-29] MEDS: APIXABAN 5 MG TAB (ELIQUIS) PO SCH (20:37)
[2024-02-29] MEDS: METOPROLOL TART 25 MG TABLET PO SCH (20:40)
[2024-02-29] MEDS ORDERED: GABAPENTIN 300 MG CAP PO SCH (21:00)
[2024-02-29 21:48] VITALS: BP_SYST 131; BP_SYST 169; BP_SYST 199; BP_DIAS 72; BP_DIAS 85; BP_DIAS 95; TEMP 97.5; O2SAT 93
[2024-02-29] MEDS: ACETAMINOPHEN 650MG ER TAB (TYLENOL ARTHRITIS) PO SCH (22:02)
[2024-02-29] MEDS: RAMELTEON 8 MG TAB (ROZEREM) PO PRN (22:57)
[2024-03-01 06:00] VITALS: BP_SYST 150; BP_SYST 158; BP_SYST 173; BP_DIAS 69; BP_DIAS 97; TEMP 97.9; O2SAT 95
[2024-03-01 06:09] LABS: BASO # 0.1 10^3/uL (0.0-0.2); BASO % 0.6 % (0.0-1.0); EOS # 0.4 10^3/uL (0.0-0.5); EOS % 3.6 % (0.0-3.0); HEMATOCRIT 38.2 % (42.0-52.0); HEMOGLOBIN 12.3 g/dl (13.5-17.5); LYMPH # 2.2 10^3/uL (1.5-5.0); LYMPH % 21.1 % (24.0-44.0); MEAN CORPUSCULAR HEMOGLOBIN 27.8 pg (27.0-33.0); MEAN CORPUSCULAR HGB CONC 32.2 g/dl (32.0-36.5); MEAN CORPUSCULAR VOLUME 86.2 fl (80.0-96.0); MONO % 9.6 % (2.0-8.0); NEUTROPHILS # 6.7 10^3/uL (1.5-8.5); NEUTROPHILS % 64.8 % (36.0-66.0); PLATELET COUNT, AUTOMATED 350 10^3/uL (150-450); RED BLOOD COUNT 4.43 10^6/uL (4.30-6.10); WHITE BLOOD COUNT 10.3 10^3/uL (4.0-10.0)
[2024-03-01 06:36] LABS: BLOOD UREA NITROGEN 17 MG/DL (9-23); CALCIUM LEVEL 9.6 MG/DL (8.3-10.6); CARBON DIOXIDE LEVEL 26 MMOL/L (20-31); CHLORIDE LEVEL 94 MMOL/L (98-107); CREATININE FOR GFR 0.81 MG/DL (0.70-1.30); GLOMERULAR FILTRATION RATE > 60.0 (>35); GLUCOSE, FASTING 150 MG/DL (74-106); SODIUM LEVEL 127 MMOL/L (136-145)
[2024-03-01 06:43] LABS: CORTISOL AM 21.9 UG/DL (4.3-22.4)
[2024-03-01] MEDS: MAGNESIUM OXIDE 400MG TAB (MAG-OX) PO SCH (09:35)
[2024-03-01] MEDS: DULoxetine 20MG CAP (CYMBALTA) PO SCH (09:35)
[2024-03-01] MEDS: ATORVASTATIN 20 MG TAB PO SCH (09:35)
[2024-03-01] MEDS: SODIUM CHLORIDE 1 GM TAB PO SCH (09:35)
[2024-03-01] MEDS: CYANOCOBALAMIN 500 MCG TAB PO SCH (09:36)
[2024-03-01 12:51] VITALS: BP_SYST 151; BP_SYST 169; BP_SYST 174; BP_DIAS 63; BP_DIAS 87
[2024-03-01 14:00] VITALS: BP 146/64; TEMP 96.8; O2SAT 96
[2024-03-01] MEDS: QUEtiapine FUMARATE 25 MG TAB PO ONE (15:06)
[2024-03-01] MEDS ORDERED: SODIUM CHLORIDE 1 GM TAB PO SCH (16:00)
[2024-03-01 22:00] VITALS: BP 166/78; TEMP 98.1; O2SAT 92
[2024-03-02 06:00] VITALS: BP_SYST 150; BP_SYST 162; BP_DIAS 70; BP_DIAS 90; TEMP 97.7; O2SAT 95
[2024-03-02 06:19] LABS: BASO % 0.4 % (0.0-1.0); EOS # 0.4 10^3/uL (0.0-0.5); EOS % 3.3 % (0.0-3.0); HEMATOCRIT 37.9 % (42.0-52.0); HEMOGLOBIN 12.2 g/dl (13.5-17.5); LYMPH # 2.2 10^3/uL (1.5-5.0); LYMPH % 20.4 % (24.0-44.0); MEAN CORPUSCULAR HEMOGLOBIN 27.1 pg (27.0-33.0); MEAN CORPUSCULAR HGB CONC 32.2 g/dl (32.0-36.5); MONO # 1.2 10^3/uL (0.0-0.8); MONO % 11.1 % (2.0-8.0); NEUTROPHILS # 6.8 10^3/uL (1.5-8.5); NEUTROPHILS % 64.5 % (36.0-66.0); PLATELET COUNT, AUTOMATED 343 10^3/uL (150-450); RED BLOOD COUNT 4.51 10^6/uL (4.30-6.10); WHITE BLOOD COUNT 10.6 10^3/uL (4.0-10.0)
[2024-03-02 06:44] LABS: BLOOD UREA NITROGEN 17 MG/DL (9-23); CALCIUM LEVEL 9.7 MG/DL (8.3-10.6); CARBON DIOXIDE LEVEL 24 MMOL/L (20-31); CHLORIDE LEVEL 96 MMOL/L (98-107); CREATININE FOR GFR 0.85 MG/DL (0.70-1.30); GLOMERULAR FILTRATION RATE > 60.0 (>35); GLUCOSE, FASTING 160 MG/DL (74-106); POTASSIUM SERUM 4.1 MMOL/L (3.5-5.1); SODIUM LEVEL 129 MMOL/L (136-145)
[2024-03-02 14:00] VITALS: TEMP 97.5
[2024-03-02] MEDS: QUEtiapine FUMARATE 25 MG TAB PO SCH (20:50)
[2024-03-02 22:00] VITALS: BP 153/69; TEMP 98.1; O2SAT 99
[2024-03-03 06:00] VITALS: BP 160/87; TEMP 98.8; O2SAT 97
[2024-03-03 06:06] LABS: BASO % 0.2 % (0.0-1.0); EOS # 0.3 10^3/uL (0.0-0.5); EOS % 1.9 % (0.0-3.0); HEMATOCRIT 39.2 % (42.0-52.0); HEMOGLOBIN 12.9 g/dl (13.5-17.5); LYMPH # 1.6 10^3/uL (1.5-5.0); LYMPH % 10.5 % (24.0-44.0); MEAN CORPUSCULAR HEMOGLOBIN 28.1 pg (27.0-33.0); MEAN CORPUSCULAR HGB CONC 32.9 g/dl (32.0-36.5); MEAN CORPUSCULAR VOLUME 85.4 fl (80.0-96.0); MONO # 1.3 10^3/uL (0.0-0.8); MONO % 8.4 % (2.0-8.0); NEUTROPHILS # 11.9 10^3/uL (1.5-8.5); NEUTROPHILS % 78.7 % (36.0-66.0); PLATELET COUNT, AUTOMATED 324 10^3/uL (150-450); RED BLOOD COUNT 4.59 10^6/uL (4.30-6.10); WHITE BLOOD COUNT 15.1 10^3/uL (4.0-10.0)
[2024-03-03 06:33] LABS: BLOOD UREA NITROGEN 17 MG/DL (9-23); CALCIUM LEVEL 9.4 MG/DL (8.3-10.6); CARBON DIOXIDE LEVEL 25 MMOL/L (20-31); CHLORIDE LEVEL 96 MMOL/L (98-107); CREATININE FOR GFR 0.93 MG/DL (0.70-1.30); GLOMERULAR FILTRATION RATE > 60.0 (>35); GLUCOSE, FASTING 128 MG/DL (74-106); SODIUM LEVEL 130 MMOL/L (136-145)
[2024-03-03] MEDS: amLODIPine 5 MG TAB PO SCH (08:44)
[2024-03-03] MEDS: LIDOCAINE 5% (LIDODERM) PATCH TD SCH (11:40)
[2024-03-03] MEDS: NS 1,000 ML IV SCH (11:40)
[2024-03-03] MEDS: ACETAMINOPHEN TAB 650MG DOSE (2X325MG) PO PRN (11:41)
[2024-03-03 11:45] LABS: PROCALCITONIN 0.11 ng/ml
[2024-03-03 14:00] VITALS: BP 135/64; TEMP 97.7; O2SAT 95
[2024-03-03 21:47] VITALS: BP 145/71; TEMP 97; O2SAT 95
[2024-03-04 05:05] VITALS: BP 145/70; TEMP 97.9; O2SAT 92
[2024-03-04 06:31] LABS: BASO % 0.2 % (0.0-1.0); EOS # 0.4 10^3/uL (0.0-0.5); EOS % 2.2 % (0.0-3.0); HEMATOCRIT 35.8 % (42.0-52.0); HEMOGLOBIN 11.8 g/dl (13.5-17.5); LYMPH % 12.1 % (24.0-44.0); MEAN CORPUSCULAR HEMOGLOBIN 27.6 pg (27.0-33.0); MEAN CORPUSCULAR VOLUME 83.8 fl (80.0-96.0); MONO # 1.3 10^3/uL (0.0-0.8); MONO % 7.9 % (2.0-8.0); NEUTROPHILS # 12.5 10^3/uL (1.5-8.5); NEUTROPHILS % 77.1 % (36.0-66.0); PLATELET COUNT, AUTOMATED 287 10^3/uL (150-450); RED BLOOD COUNT 4.27 10^6/uL (4.30-6.10); WHITE BLOOD COUNT 16.2 10^3/uL (4.0-10.0)
[2024-03-04 06:59] LABS: BLOOD UREA NITROGEN 20 MG/DL (9-23); CARBON DIOXIDE LEVEL 24 MMOL/L (20-31); CHLORIDE LEVEL 98 MMOL/L (98-107); CREATININE FOR GFR 0.92 MG/DL (0.70-1.30); GLOMERULAR FILTRATION RATE > 60.0 (>35); GLUCOSE, FASTING 143 MG/DL (74-106); POTASSIUM SERUM 3.9 MMOL/L (3.5-5.1); SODIUM LEVEL 130 MMOL/L (136-145)
[2024-03-04] MEDS: FUROSEMIDE 40MG/4ML VIAL IV ONE (13:13)
[2024-03-04 14:00] VITALS: BP 137/57; TEMP 97.2; O2SAT 95
[2024-03-04 19:32] VITALS: BP 138/60; TEMP 97.9; O2SAT 94
[2024-03-05 06:32] LABS: BASO % 0.3 % (0.0-1.0); EOS # 0.5 10^3/uL (0.0-0.5); EOS % 4.5 % (0.0-3.0); HEMATOCRIT 37.2 % (42.0-52.0); HEMOGLOBIN 11.9 g/dl (13.5-17.5); LYMPH % 17.7 % (24.0-44.0); MEAN CORPUSCULAR HEMOGLOBIN 27.6 pg (27.0-33.0); MEAN CORPUSCULAR VOLUME 86.3 fl (80.0-96.0); MONO # 1.1 10^3/uL (0.0-0.8); MONO % 9.8 % (2.0-8.0); NEUTROPHILS # 7.7 10^3/uL (1.5-8.5); NEUTROPHILS % 67.4 % (36.0-66.0); PLATELET COUNT, AUTOMATED 314 10^3/uL (150-450); RED BLOOD COUNT 4.31 10^6/uL (4.30-6.10); WHITE BLOOD COUNT 11.4 10^3/uL (4.0-10.0)
[2024-03-05 06:54] LABS: BLOOD UREA NITROGEN 22 MG/DL (9-23); CALCIUM LEVEL 8.8 MG/DL (8.3-10.6); CARBON DIOXIDE LEVEL 26 MMOL/L (20-31); CHLORIDE LEVEL 99 MMOL/L (98-107); CREATININE FOR GFR 1.02 MG/DL (0.70-1.30); GLOMERULAR FILTRATION RATE > 60.0 (>35); GLUCOSE, FASTING 138 MG/DL (74-106); POTASSIUM SERUM 3.7 MMOL/L (3.5-5.1); SODIUM LEVEL 134 MMOL/L (136-145)
[2024-03-05] MEDS: MIRALAX *UNIT DOSE* 17GM PACKET PO PRN (08:58)
[2024-03-05] MEDS: SENOKOT S TAB PO SCH (08:59)
[2024-03-05] MEDS: BISACODYL 10MG SUPP PR SCH (08:59)
[2024-03-05 13:47] VITALS: BP 114/55; TEMP 97.2; O2SAT 97
[2024-03-05] MEDS: QUEtiapine FUMARATE 12.5 MG HALF-TAB PO SCH (21:19)
[2024-03-05 21:23] VITALS: BP 140/82; TEMP 99.1; O2SAT 95
[2024-03-06 05:08] VITALS: BP 147/80; TEMP 97.9; O2SAT 97
[2024-03-06 06:16] LABS: BASO % 0.3 % (0.0-1.0); EOS # 0.4 10^3/uL (0.0-0.5); EOS % 3.1 % (0.0-3.0); HEMATOCRIT 39.1 % (42.0-52.0); HEMOGLOBIN 12.4 g/dl (13.5-17.5); LYMPH # 1.4 10^3/uL (1.5-5.0); LYMPH % 11.2 % (24.0-44.0); MEAN CORPUSCULAR HEMOGLOBIN 27.4 pg (27.0-33.0); MEAN CORPUSCULAR HGB CONC 31.7 g/dl (32.0-36.5); MEAN CORPUSCULAR VOLUME 86.3 fl (80.0-96.0); MONO # 1.2 10^3/uL (0.0-0.8); MONO % 9.3 % (2.0-8.0); NEUTROPHILS # 9.7 10^3/uL (1.5-8.5); NEUTROPHILS % 75.6 % (36.0-66.0); PLATELET COUNT, AUTOMATED 298 10^3/uL (150-450); RED BLOOD COUNT 4.53 10^6/uL (4.30-6.10); WHITE BLOOD COUNT 12.8 10^3/uL (4.0-10.0)
[2024-03-06 06:31] LABS: BLOOD UREA NITROGEN 26 MG/DL (9-23); CALCIUM LEVEL 8.7 MG/DL (8.3-10.6); CARBON DIOXIDE LEVEL 23 MMOL/L (20-31); CHLORIDE LEVEL 101 MMOL/L (98-107); CREATININE FOR GFR 0.92 MG/DL (0.70-1.30); GLOMERULAR FILTRATION RATE > 60.0 (>35); GLUCOSE, FASTING 147 MG/DL (74-106); POTASSIUM SERUM 4.1 MMOL/L (3.5-5.1); SODIUM LEVEL 134 MMOL/L (136-145)
[2024-03-06 08:17] VITALS: BP 142/66
[2024-03-06] MEDS ORDERED: SODI1TAB6 PO (12:25)
[2024-03-06] MEDS ORDERED: GABA-1171 PO (12:25)
[2024-03-06] MEDS ORDERED: LASI20TA3 PO (12:25)
[2024-03-06] MEDS ORDERED: AMLO25TA PO (12:25)
[2024-03-06] MEDS ORDERED: METO1TAB87 PO (12:25)
== END 2024-03-06 13:26 | DRG 74 ==
LOC: M ED 13:06 → EDBD 13:06 → M ED INP 18:38 → M MSPAV 21:32
PROVIDERS: ADMIT Internal Medicine Nephrology; ATTEND Internal Medicine Nephrology
DX: E11.43 Type 2 diabetes mellitus with diabetic autonomic (poly)neuropathy (principal); E22.2 Syndrome of inappropriate secretion of antidiuretic hormone; I48.20 Chronic atrial fibrillation, unspecified; J84.9 Interstitial pulmonary disease, unspecified; F02.80 Dementia in other diseases classified elsewhere, unspecified severity, without behavioral disturbance, psychotic disturbance, mood disturbance, and anxiety; E78.5 Hyperlipidemia, unspecified; I95.1 Orthostatic hypotension; E11.42 Type 2 diabetes mellitus with diabetic polyneuropathy; I25.10 Atherosclerotic heart disease of native coronary artery without angina pectoris; G30.9 Alzheimer's disease, unspecified; D64.9 Anemia, unspecified; F32.A Depression, unspecified; K21.9 Gastro-esophageal reflux disease without esophagitis; M17.0 Bilateral primary osteoarthritis of knee; N18.30 Chronic kidney disease, stage 3 unspecified; K59.00 Constipation, unspecified; R31.0 Gross hematuria; G47.33 Obstructive sleep apnea (adult) (pediatric); G47.00 Insomnia, unspecified; F41.9 Anxiety disorder, unspecified; I12.9 Hypertensive chronic kidney disease with stage 1 through stage 4 chronic kidney disease, or unspecified chronic kidney disease; N40.1 Benign prostatic hyperplasia with lower urinary tract symptoms; R33.9 Retention of urine, unspecified; E11.22 Type 2 diabetes mellitus with diabetic chronic kidney disease; E53.8 Deficiency of other specified B group vitamins; R13.10 Dysphagia, unspecified; R53.1 Weakness; G89.29 Other chronic pain; Z79.01 Long term (current) use of anticoagulants; Z79.899 Other long term (current) drug therapy; Z88.0 Allergy status to penicillin; Z88.8 Allergy status to other drugs, medicaments and biological substances

== ENCOUNTER → 2024-03-14 | Outpatient (REF) | payer MEDICARE ==
[~2024-03-14] MED LIST changes: +ACET-907 PO; +ACET650T61 PO; +AMLO25TA PO; +ELIQ5TAB PO; +GABA-1171 PO; +GABA-282 PO; +LASI20TA3 PO; +LIDO1CRE2 TOP; +MAGN400T2 PO; +MELA3TAB29 PO; +METO1TAB87 PO; +METO50TA7 PO
[2024-03-14 09:55] LABS: HEMATOCRIT 35.4 % (42.0-52.0); HEMOGLOBIN 11.7 g/dl (13.5-17.5); MEAN CORPUSCULAR HEMOGLOBIN 28.1 pg (27.0-33.0); MEAN CORPUSCULAR HGB CONC 33.1 g/dl (32.0-36.5); MEAN CORPUSCULAR VOLUME 85.1 fl (80.0-96.0); PLATELET COUNT, AUTOMATED 347 10^3/uL (150-450); RED BLOOD COUNT 4.16 10^6/uL (4.30-6.10); WHITE BLOOD COUNT 12.5 10^3/uL (4.0-10.0)
[2024-03-14 10:25] LABS: BLOOD UREA NITROGEN 17 MG/DL (9-23); CALCIUM LEVEL 8.6 MG/DL (8.3-10.6); CARBON DIOXIDE LEVEL 25 MMOL/L (20-31); CHLORIDE LEVEL 96 MMOL/L (98-107); CREATININE FOR GFR 0.95 MG/DL (0.70-1.30); GLOMERULAR FILTRATION RATE > 60.0 (>35); GLUCOSE, FASTING 204 MG/DL (74-106); POTASSIUM SERUM 4.8 MMOL/L (3.5-5.1); SODIUM LEVEL 127 MMOL/L (136-145)
== END ==
LOC: SKLAB4 09:12
PROVIDERS: ATTEND Internal Medicine
DX: I10 Essential (primary) hypertension (principal)

== ENCOUNTER → 2024-03-21 | Outpatient (REF) | payer MEDICARE ==
[2024-03-21 13:18] LABS: HEMATOCRIT 33.9 % (42.0-52.0); HEMOGLOBIN 10.8 g/dl (13.5-17.5); MEAN CORPUSCULAR HEMOGLOBIN 27.4 pg (27.0-33.0); MEAN CORPUSCULAR HGB CONC 31.9 g/dl (32.0-36.5); PLATELET COUNT, AUTOMATED 391 10^3/uL (150-450); RED BLOOD COUNT 3.94 10^6/uL (4.30-6.10); WHITE BLOOD COUNT 9.1 10^3/uL (4.0-10.0)
[2024-03-21 13:40] LABS: BLOOD UREA NITROGEN 19 MG/DL (9-23); CALCIUM LEVEL 8.7 MG/DL (8.3-10.6); CARBON DIOXIDE LEVEL 24 MMOL/L (20-31); CHLORIDE LEVEL 97 MMOL/L (98-107); CREATININE FOR GFR 0.89 MG/DL (0.70-1.30); GLOMERULAR FILTRATION RATE > 60.0 (>35); GLUCOSE, FASTING 164 MG/DL (74-106); POTASSIUM SERUM 4.7 MMOL/L (3.5-5.1); SODIUM LEVEL 129 MMOL/L (136-145)
== END ==
LOC: SKLAB4 08:36
PROVIDERS: ATTEND Internal Medicine
DX: E87.1 Hypo-osmolality and hyponatremia (principal)

== ENCOUNTER → 2024-03-28 | Outpatient (REF) | payer MEDICARE ==
[2024-03-28 08:54] LABS: HEMATOCRIT 36.2 % (42.0-52.0); HEMOGLOBIN 11.7 g/dl (13.5-17.5); MEAN CORPUSCULAR HEMOGLOBIN 27.7 pg (27.0-33.0); MEAN CORPUSCULAR HGB CONC 32.3 g/dl (32.0-36.5); MEAN CORPUSCULAR VOLUME 85.6 fl (80.0-96.0); PLATELET COUNT, AUTOMATED 314 10^3/uL (150-450); RED BLOOD COUNT 4.23 10^6/uL (4.30-6.10); WHITE BLOOD COUNT 9.4 10^3/uL (4.0-10.0)
[2024-03-28 09:12] LABS: BLOOD UREA NITROGEN 16 MG/DL (9-23); CALCIUM LEVEL 9.3 MG/DL (8.3-10.6); CARBON DIOXIDE LEVEL 26 MMOL/L (20-31); CHLORIDE LEVEL 94 MMOL/L (98-107); CREATININE FOR GFR 0.85 MG/DL (0.70-1.30); GLOMERULAR FILTRATION RATE > 60.0 (>35); GLUCOSE, FASTING 150 MG/DL (74-106); POTASSIUM SERUM 4.7 MMOL/L (3.5-5.1); SODIUM LEVEL 126 MMOL/L (136-145)
== END ==
LOC: SKLAB4 07:00
PROVIDERS: ATTEND Internal Medicine
DX: E87.1 Hypo-osmolality and hyponatremia (principal)

== ENCOUNTER → 2024-04-04 | Outpatient (REF) | payer MEDICARE ==
[2024-04-04 11:14] LABS: BLOOD UREA NITROGEN 17 MG/DL (9-23); CALCIUM LEVEL 9.2 MG/DL (8.3-10.6); CARBON DIOXIDE LEVEL 26 MMOL/L (20-31); CHLORIDE LEVEL 93 MMOL/L (98-107); CREATININE FOR GFR 0.81 MG/DL (0.70-1.30); GLOMERULAR FILTRATION RATE > 60.0 (>35); GLUCOSE, FASTING 154 MG/DL (74-106); POTASSIUM SERUM 4.5 MMOL/L (3.5-5.1); SODIUM LEVEL 125 MMOL/L (136-145)
== END ==
LOC: SKLAB4 07:00
PROVIDERS: ATTEND Internal Medicine
DX: E87.1 Hypo-osmolality and hyponatremia (principal)

== ENCOUNTER → 2024-04-18 | Outpatient (REF) | payer MEDICARE ==
[2024-04-18 11:15] LABS: BLOOD UREA NITROGEN 23 MG/DL (9-23); CALCIUM LEVEL 9.5 MG/DL (8.3-10.6); CARBON DIOXIDE LEVEL 27 MMOL/L (20-31); CHLORIDE LEVEL 98 MMOL/L (98-107); CREATININE FOR GFR 0.85 MG/DL (0.70-1.30); GLOMERULAR FILTRATION RATE > 60.0 (>35); GLUCOSE, FASTING 296 MG/DL (74-106); POTASSIUM SERUM 4.7 MMOL/L (3.5-5.1); SODIUM LEVEL 131 MMOL/L (136-145)
== END ==
LOC: SKLAB4 09:45
PROVIDERS: ATTEND Internal Medicine
DX: E87.1 Hypo-osmolality and hyponatremia (principal)

== ENCOUNTER → 2024-04-27 | Outpatient (REF) | payer MEDICARE ==
[~2024-04-27] MED LIST changes: +ACET1TAB55 PO; +FURO20TA2 PO; +LEVO1TAB39 PO; +MILKSUS3 PO; +NESI25TA PO; +ONDA-83 PO; +SENN1TAB85 PO; +SODI1TAB12 PO
[2024-04-27 07:20] LABS: HEMOGLOBIN A1c 7.7 % (4.0-6.0)
== END ==
LOC: SKLAB4 08:40
PROVIDERS: ATTEND Internal Medicine
DX: E11.9 Type 2 diabetes mellitus without complications (principal)

== ENCOUNTER → 2024-05-02 | Outpatient (REF) | payer MEDICARE ==
[~2024-05-02] MED LIST changes: -ACET1TAB55 PO; -FURO20TA2 PO; -LEVO1TAB39 PO; -MILKSUS3 PO; -NESI25TA PO; -ONDA-83 PO; -SENN1TAB85 PO; -SODI1TAB12 PO
[2024-05-02 16:11] LABS: BASO % 0.5 % (0.0-1.0); EOS # 0.4 10^3/uL (0.0-0.5); HEMATOCRIT 38.3 % (42.0-52.0); HEMOGLOBIN 11.9 g/dl (13.5-17.5); LYMPH # 1.8 10^3/uL (1.5-5.0); LYMPH % 21.2 % (24.0-44.0); MEAN CORPUSCULAR HGB CONC 31.1 g/dl (32.0-36.5); MONO # 0.9 10^3/uL (0.0-0.8); MONO % 10.2 % (2.0-8.0); NEUTROPHILS # 5.3 10^3/uL (1.5-8.5); NEUTROPHILS % 62.7 % (36.0-66.0); PLATELET COUNT, AUTOMATED 299 10^3/uL (150-450); WHITE BLOOD COUNT 8.5 10^3/uL (4.0-10.0)
[2024-05-02 16:43] LABS: ALBUMIN 2.9 G/DL (3.2-5.2); ALKALINE PHOSPHATASE 99 U/L (46-116); ALT/SGPT 15 U/L (7.0-40); AST/SGOT < 8 U/L (<34); BILIRUBIN,TOTAL 0.5 MG/DL (0.3-1.2); BLOOD UREA NITROGEN 24 MG/DL (9-23); CALCIUM LEVEL 9.1 MG/DL (8.3-10.6); CARBON DIOXIDE LEVEL 24 MMOL/L (20-31); CHLORIDE LEVEL 99 MMOL/L (98-107); CREATININE FOR GFR 0.89 MG/DL (0.70-1.30); GLOMERULAR FILTRATION RATE > 60.0 (>35); GLUCOSE, FASTING 317 MG/DL (74-106); POTASSIUM SERUM 4.3 MMOL/L (3.5-5.1); SODIUM LEVEL 129 MMOL/L (136-145); TOTAL PROTEIN 5.9 G/DL (5.7-8.2)
== END ==
LOC: SKLAB4 15:07
PROVIDERS: ATTEND Internal Medicine
DX: R11.0 Nausea (principal)

== ENCOUNTER → 2024-05-03 | Outpatient (REF) | payer MEDICARE | LOC: SKLAB4 09:22 | PROVIDERS: ATTEND Internal Medicine | DX: R11.0 Nausea (principal) ==

== ENCOUNTER → 2024-05-10 | Outpatient (REF) | payer MEDICARE, MEDICAID ==
[~2024-05-10] MED LIST changes: +ACET1TAB55 PO; +FURO20TA2 PO; +LEVO1TAB39 PO; +MILKSUS3 PO; +NESI25TA PO; +ONDA-83 PO; +SENN1TAB85 PO; +SODI1TAB12 PO
== END ==
LOC: SKLAB4 20:52
PROVIDERS: ATTEND Internal Medicine
DX: R30.9 Painful micturition, unspecified (principal); Z53.8 Procedure and treatment not carried out for other reasons

== ENCOUNTER → 2024-05-10 | Outpatient (REF) | payer MEDICARE, MEDICAID ==
[2024-05-10 15:24] LABS: BASO % 0.2 % (0.0-1.0); EOS # 0.2 10^3/uL (0.0-0.5); HEMATOCRIT 35.5 % (42.0-52.0); LYMPH # 1.9 10^3/uL (1.5-5.0); LYMPH % 15.5 % (24.0-44.0); MONO # 1.1 10^3/uL (0.0-0.8); MONO % 9.1 % (2.0-8.0); NEUTROPHILS # 8.9 10^3/uL (1.5-8.5); NEUTROPHILS % 72.8 % (36.0-66.0); PLATELET COUNT, AUTOMATED 298 10^3/uL (150-450); RED BLOOD COUNT 4.08 10^6/uL (4.30-6.10); WHITE BLOOD COUNT 12.2 10^3/uL (4.0-10.0)
[2024-05-10 15:50] LABS: BLOOD UREA NITROGEN 29 MG/DL (9-23); CALCIUM LEVEL 9.1 MG/DL (8.3-10.6); CARBON DIOXIDE LEVEL 23 MMOL/L (20-31); CHLORIDE LEVEL 98 MMOL/L (98-107); CREATININE FOR GFR 0.98 MG/DL (0.70-1.30); GLOMERULAR FILTRATION RATE > 60.0 (>35); GLUCOSE, FASTING 332 MG/DL (74-106); POTASSIUM SERUM 4.6 MMOL/L (3.5-5.1); SODIUM LEVEL 129 MMOL/L (136-145)
[2024-05-10 15:52] LABS: THYROID STIMULATING HORMONE 1.171 uIU/ML (0.55-4.78)
[2024-05-10 20:04] LABS: APPEARANCE, URINE CLOUDY (CLEAR); BACTERIA, URINE AUTO 2+ (NEGATIVE); BILIRUBIN, URINE AUTO NEGATIVE (NEGATIVE); BLOOD, URINE BLOOD 3+ (NEGATIVE); COLOR, URINE YELLOW (YELLOW); GLUCOSE, URINE (UA) AUTO 1+ mg/dL (NEGATIVE); KETONE, URINE AUTO NEGATIVE (NEGATIVE); LEUKOCYTE ESTERASE, URINE AUTO 3+ (NEGATIVE); MUCUS, URINE SMALL (NEGATIVE); NITRITE, URINE AUTO NEGATIVE (NEGATIVE); PROTEIN, URINE AUTO 3+ mg/dL (NEGATIVE); RBC, URINE AUTO TNTC /HPF (0-3); SPECIFIC GRAVITY URINE AUTO 1.015 (1.002-1.035); SQUAMOUS EPITHELIAL CELL UR AU 0 /HPF (0-6); UROBILINOGEN, URINE AUTO 0.2 mg/dL (0.0-2.0); WBC, URINE AUTO TNTC /HPF (0-3)
== END ==
LOC: SKLAB4 14:47
PROVIDERS: ATTEND Internal Medicine
DX: R30.0 Dysuria (principal); R94.6 Abnormal results of thyroid function studies

== ENCOUNTER 2024-05-11 02:59 | Inpatient (IN) | payer MEDICARE, MEDICAID ==
[~2024-05-11] VITALS: Ht 175.3 cm; Wt 79.1 kg
[~2024-05-11 02:59] MED LIST changes: -ACET1TAB55 PO; -FURO20TA2 PO; -LEVO1TAB39 PO; -MILKSUS3 PO; -NESI25TA PO; -ONDA-83 PO; -SENN1TAB85 PO; -SODI1TAB12 PO
[2024-05-11 04:19] LABS: HEMATOCRIT 35.1 % (42.0-52.0); HEMOGLOBIN 11.2 g/dl (13.5-17.5); MEAN CORPUSCULAR HEMOGLOBIN 27.9 pg (27.0-33.0); MEAN CORPUSCULAR HGB CONC 31.9 g/dl (32.0-36.5); MEAN CORPUSCULAR VOLUME 87.3 fl (80.0-96.0); PLATELET COUNT, AUTOMATED 281 10^3/uL (150-450); RED BLOOD COUNT 4.02 10^6/uL (4.30-6.10); WHITE BLOOD COUNT 23.2 10^3/uL (4.0-10.0)
[2024-05-11 04:22] LABS: VENOUS BASE EXCESS -5.2 (-2.0-2.0); VENOUS HCO3 20.3 MMOL/L (23.0-27.0); VENOUS O2 SATURATION 95.8 % (60.0-80.0); VENOUS PARTIAL PRESSURE CO2 39.5 mmHg (38.0-50.0); VENOUS PARTIAL PRESSURE O2 91.6 mmHg (30.0-50.0); VENOUS PH 7.329 UNITS (7.330-7.430); VENOUS STANDARD HCO3 20.2 MMOL/L; VENOUS TOTAL CO2 21.5 MMOL/L (24.0-28.0)
[2024-05-11] MEDS: ACETAMINOPHEN *IV* 1,000 MG in IV 1 EA IV ONE (04:27)
[2024-05-11 04:48] LABS: ALBUMIN 3.2 G/DL (3.2-5.2); ALKALINE PHOSPHATASE 111 U/L (46-116); ALT/SGPT 25 U/L (7.0-40); AST/SGOT 30 U/L (<34); BILIRUBIN,DIRECT 0.6 MG/DL (<0.4); BILIRUBIN,TOTAL 1.2 MG/DL (0.3-1.2); BLOOD UREA NITROGEN 36 MG/DL (9-23); CALCIUM LEVEL 9.4 MG/DL (8.3-10.6); CARBON DIOXIDE LEVEL 22 MMOL/L (20-31); CHLORIDE LEVEL 103 MMOL/L (98-107); CK-MB VALUE MASS < 1.0 NG/ML (<3.6); GLOMERULAR FILTRATION RATE > 60.0 (>35); GLUCOSE, FASTING 273 MG/DL (74-106); POTASSIUM SERUM 4.3 MMOL/L (3.5-5.1); SODIUM LEVEL 135 MMOL/L (136-145); TOTAL PROTEIN 6.3 G/DL (5.7-8.2)
[2024-05-11 04:50] LABS: CPK CREATINE PHOSPHOKINASE 107 U/L (46-171); MB/CK RELATIVE INDEX 0.93 (< OR =4)
[2024-05-11] MEDS: cefTRIAXone SOD 2 GM in D5W MINI-BAG PLUS 50 ML IV ONE (05:10)
[2024-05-11 05:18] LABS: ATYPICAL LYMPH 1 % (0-5); LYMPHOCYTES 3 % (16-44); MONOCYTES 5 % (0-5); NEUTROPHILS 81 % (28-66)
[2024-05-11 05:19] LABS: ANISOCYTOSIS 1+; PLATELET ESTIMATE NORMAL (NORMAL); POLYCHROMASIA 1+
[2024-05-11] MEDS ORDERED: ISOVUE-370 76% 100ML VIAL As Ordered ONE (06:01)
[2024-05-11 07:56] LABS: CK-MB VALUE MASS 1.2 NG/ML (<3.6)
[2024-05-11 08:01] LABS: MB/CK RELATIVE INDEX 0.88 (< OR =4)
[2024-05-11] MEDS: NS 1,000 ML IV SCH (09:22)
[2024-05-11] MEDS ORDERED: ACET1TAB55 PO (10:47)
[2024-05-11] MEDS ORDERED: ONDA-83 PO (10:47)
[2024-05-11] MEDS ORDERED: AMLO25TA PO (10:47)
[2024-05-11] MEDS ORDERED: SODI1TAB12 PO (10:47)
[2024-05-11] MEDS ORDERED: METO1TAB87 PO (10:47)
[2024-05-11] MEDS ORDERED: GABA-1171 PO (10:47)
[2024-05-11] MEDS ORDERED: SENN1TAB85 PO (10:47)
[2024-05-11] MEDS ORDERED: LEVO1TAB39 PO (10:47)
[2024-05-11] MEDS ORDERED: NESI25TA PO (10:47)
[2024-05-11] MEDS ORDERED: FURO20TA2 PO (10:47)
[2024-05-11] MEDS ORDERED: MILKSUS3 PO (10:47)
[2024-05-11] MEDS ORDERED: HOME MED LIST COMPLETE! XX SCH (10:50)
[2024-05-11 12:49] VITALS: BP 151/78; TEMP 97; O2SAT 100
[2024-05-11] MEDS: PIPERACILLIN/TAZOBACTAM SOD 3.375 GM in D5W MINI-BAG PLUS 50 ML IV SCH (13:35)
[2024-05-11] MEDS: MAGNESIUM OXIDE 400MG TAB (MAG-OX) PO SCH (15:36)
[2024-05-11] MEDS: DULoxetine 20MG CAP (CYMBALTA) PO SCH (15:36)
[2024-05-11] MEDS: SODIUM CHLORIDE 1 GM TAB PO SCH (18:16)
[2024-05-11 20:00] VITALS: BP 135/64; TEMP 97.9; O2SAT 91
[2024-05-11] MEDS: SENOKOT S TAB PO SCH (21:02)
[2024-05-11] MEDS: GABAPENTIN 100 MG CAP PO SCH (21:02)
[2024-05-11] MEDS: APIXABAN 5 MG TAB (ELIQUIS) PO SCH (21:02)
[2024-05-11] MEDS: busPIRone 5 MG TAB PO SCH (21:02)
[2024-05-11] MEDS: METOPROLOL TART 25 MG TABLET PO SCH (21:02)
[2024-05-11] MEDS: ACETAMINOPHEN TAB 650MG DOSE (2X325MG) PO PRN (21:05)
[2024-05-12 04:00] VITALS: BP 141/85; TEMP 97.5; O2SAT 93
[2024-05-12] MEDS: PERCOCET 5MG/325MG TAB PO PRN (06:07)
[2024-05-12 06:24] LABS: BASO % 0.2 % (0.0-1.0); EOS # 0.4 10^3/uL (0.0-0.5); EOS % 2.2 % (0.0-3.0); HEMATOCRIT 32.6 % (42.0-52.0); HEMOGLOBIN 10.2 g/dl (13.5-17.5); LYMPH # 1.7 10^3/uL (1.5-5.0); LYMPH % 10.8 % (24.0-44.0); MEAN CORPUSCULAR HEMOGLOBIN 27.5 pg (27.0-33.0); MEAN CORPUSCULAR HGB CONC 31.3 g/dl (32.0-36.5); MEAN CORPUSCULAR VOLUME 87.9 fl (80.0-96.0); MONO # 0.9 10^3/uL (0.0-0.8); MONO % 5.9 % (2.0-8.0); NEUTROPHILS # 12.9 10^3/uL (1.5-8.5); NEUTROPHILS % 80.2 % (36.0-66.0); PLATELET COUNT, AUTOMATED 217 10^3/uL (150-450); RED BLOOD COUNT 3.71 10^6/uL (4.30-6.10)
[2024-05-12 06:50] LABS: BLOOD UREA NITROGEN 36 MG/DL (9-23); CALCIUM LEVEL 8.5 MG/DL (8.3-10.6); CARBON DIOXIDE LEVEL 22 MMOL/L (20-31); CHLORIDE LEVEL 104 MMOL/L (98-107); CREATININE FOR GFR 1.13 MG/DL (0.70-1.30); GLOMERULAR FILTRATION RATE > 60.0 (>35); GLUCOSE, FASTING 206 MG/DL (74-106); POTASSIUM SERUM 4.2 MMOL/L (3.5-5.1); SODIUM LEVEL 133 MMOL/L (136-145)
[2024-05-12 12:00] VITALS: BP 122/68; TEMP 97.9; O2SAT 94
[2024-05-12] MEDS: cefTRIAXone SOD 2 GM in D5W MINI-BAG PLUS 50 ML IV SCH (13:47)
[2024-05-12 20:04] VITALS: BP 140/71; TEMP 97.5; O2SAT 96
[2024-05-13] MEDS: NYSTATIN 100,000 UNITS/GM TOPICAL PWD 15GM TOP SCH (00:45)
[2024-05-13 05:53] VITALS: BP 147/76; TEMP 97.5; O2SAT 94
[2024-05-13 06:34] LABS: BASO % 0.4 % (0.0-1.0); EOS # 0.5 10^3/uL (0.0-0.5); EOS % 4.9 % (0.0-3.0); HEMATOCRIT 34.8 % (42.0-52.0); HEMOGLOBIN 10.7 g/dl (13.5-17.5); MEAN CORPUSCULAR HEMOGLOBIN 27.6 pg (27.0-33.0); MEAN CORPUSCULAR HGB CONC 30.7 g/dl (32.0-36.5); MEAN CORPUSCULAR VOLUME 89.7 fl (80.0-96.0); MONO # 0.9 10^3/uL (0.0-0.8); MONO % 8.3 % (2.0-8.0); NEUTROPHILS # 7.4 10^3/uL (1.5-8.5); NEUTROPHILS % 67.8 % (36.0-66.0); PLATELET COUNT, AUTOMATED 233 10^3/uL (150-450); RED BLOOD COUNT 3.88 10^6/uL (4.30-6.10); WHITE BLOOD COUNT 10.9 10^3/uL (4.0-10.0)
[2024-05-13 07:02] LABS: BLOOD UREA NITROGEN 31 MG/DL (9-23); CALCIUM LEVEL 8.5 MG/DL (8.3-10.6); CARBON DIOXIDE LEVEL 24 MMOL/L (20-31); CHLORIDE LEVEL 104 MMOL/L (98-107); CREATININE FOR GFR 0.97 MG/DL (0.70-1.30); GLOMERULAR FILTRATION RATE > 60.0 (>35); GLUCOSE, FASTING 188 MG/DL (74-106); POTASSIUM SERUM 4.4 MMOL/L (3.5-5.1); SODIUM LEVEL 134 MMOL/L (136-145)
[2024-05-13] MEDS: ACETAMINOPHEN 500 MG TAB PO PRN (08:44)
[2024-05-13 12:00] VITALS: BP 165/84; TEMP 97.9; O2SAT 97
[2024-05-13 17:22] VITALS: BP 178/70
[2024-05-13] MEDS: amLODIPine 5 MG TAB PO ONE (17:53)
[2024-05-13 20:15] VITALS: BP 172/96; TEMP 97.5; O2SAT 94
[2024-05-13] MEDS: ACETAMINOPHEN 500 MG TAB PO SCH (20:54)
[2024-05-14 04:00] VITALS: BP 155/83; TEMP 97.3; O2SAT 96
[2024-05-14 06:27] LABS: BASO % 0.4 % (0.0-1.0); EOS # 0.3 10^3/uL (0.0-0.5); EOS % 3.3 % (0.0-3.0); HEMATOCRIT 37.2 % (42.0-52.0); HEMOGLOBIN 11.3 g/dl (13.5-17.5); LYMPH # 1.7 10^3/uL (1.5-5.0); LYMPH % 17.2 % (24.0-44.0); MEAN CORPUSCULAR HEMOGLOBIN 26.8 pg (27.0-33.0); MEAN CORPUSCULAR HGB CONC 30.4 g/dl (32.0-36.5); MEAN CORPUSCULAR VOLUME 88.4 fl (80.0-96.0); MONO # 0.8 10^3/uL (0.0-0.8); MONO % 8.2 % (2.0-8.0); NEUTROPHILS # 6.9 10^3/uL (1.5-8.5); NEUTROPHILS % 70.3 % (36.0-66.0); PLATELET COUNT, AUTOMATED 250 10^3/uL (150-450); RED BLOOD COUNT 4.21 10^6/uL (4.30-6.10); WHITE BLOOD COUNT 9.9 10^3/uL (4.0-10.0)
[2024-05-14 06:42] LABS: BLOOD UREA NITROGEN 19 MG/DL (9-23); CALCIUM LEVEL 8.8 MG/DL (8.3-10.6); CARBON DIOXIDE LEVEL 25 MMOL/L (20-31); CHLORIDE LEVEL 102 MMOL/L (98-107); CREATININE FOR GFR 0.85 MG/DL (0.70-1.30); GLOMERULAR FILTRATION RATE > 60.0 (>35); GLUCOSE, FASTING 195 MG/DL (74-106); SODIUM LEVEL 133 MMOL/L (136-145)
[2024-05-14] MEDS: FUROSEMIDE 10MG PER 1/2 TABLET PO SCH (09:08)
[2024-05-14 12:00] VITALS: BP 166/85; TEMP 97; O2SAT 93
[2024-05-14 20:24] VITALS: BP 166/86; TEMP 97.7; O2SAT 95
[2024-05-15 03:20] VITALS: BP 165/84; TEMP 97.7; O2SAT 98
[2024-05-15 06:05] LABS: BASO % 0.5 % (0.0-1.0); EOS # 0.5 10^3/uL (0.0-0.5); EOS % 5.5 % (0.0-3.0); HEMATOCRIT 34.8 % (42.0-52.0); HEMOGLOBIN 10.6 g/dl (13.5-17.5); LYMPH # 1.7 10^3/uL (1.5-5.0); LYMPH % 19.5 % (24.0-44.0); MEAN CORPUSCULAR HEMOGLOBIN 26.7 pg (27.0-33.0); MEAN CORPUSCULAR HGB CONC 30.5 g/dl (32.0-36.5); MEAN CORPUSCULAR VOLUME 87.7 fl (80.0-96.0); MONO # 0.9 10^3/uL (0.0-0.8); MONO % 10.3 % (2.0-8.0); NEUTROPHILS # 5.6 10^3/uL (1.5-8.5); NEUTROPHILS % 63.4 % (36.0-66.0); PLATELET COUNT, AUTOMATED 247 10^3/uL (150-450); RED BLOOD COUNT 3.97 10^6/uL (4.30-6.10); WHITE BLOOD COUNT 8.8 10^3/uL (4.0-10.0)
[2024-05-15 06:30] LABS: BLOOD UREA NITROGEN 13 MG/DL (9-23); CALCIUM LEVEL 8.4 MG/DL (8.3-10.6); CARBON DIOXIDE LEVEL 28 MMOL/L (20-31); CHLORIDE LEVEL 102 MMOL/L (98-107); CREATININE FOR GFR 0.81 MG/DL (0.70-1.30); GLOMERULAR FILTRATION RATE > 60.0 (>35); GLUCOSE, FASTING 222 MG/DL (74-106); POTASSIUM SERUM 3.8 MMOL/L (3.5-5.1); SODIUM LEVEL 134 MMOL/L (136-145)
[2024-05-15 08:38] VITALS: BP 141/63
== END 2024-05-15 11:12 | DRG 871 ==
LOC: M ED 02:59 → EDBD 02:59 → M ED INP 09:52 → M MSPAV 12:25
PROVIDERS: ADMIT Internal Medicine Nephrology; ATTEND Internal Medicine Nephrology
DX: A41.9 Sepsis, unspecified organism (principal); G93.41 Metabolic encephalopathy; I48.20 Chronic atrial fibrillation, unspecified; E22.2 Syndrome of inappropriate secretion of antidiuretic hormone; J98.11 Atelectasis; J84.9 Interstitial pulmonary disease, unspecified; K86.1 Other chronic pancreatitis; N30.80 Other cystitis without hematuria; E11.22 Type 2 diabetes mellitus with diabetic chronic kidney disease; I12.9 Hypertensive chronic kidney disease with stage 1 through stage 4 chronic kidney disease, or unspecified chronic kidney disease; I95.1 Orthostatic hypotension; J43.9 Emphysema, unspecified; K80.20 Calculus of gallbladder without cholecystitis without obstruction; E11.42 Type 2 diabetes mellitus with diabetic polyneuropathy; E78.5 Hyperlipidemia, unspecified; I25.10 Atherosclerotic heart disease of native coronary artery without angina pectoris; F32.A Depression, unspecified; N40.1 Benign prostatic hyperplasia with lower urinary tract symptoms; K21.9 Gastro-esophageal reflux disease without esophagitis; M17.0 Bilateral primary osteoarthritis of knee; K59.09 Other constipation; M54.9 Dorsalgia, unspecified; G47.33 Obstructive sleep apnea (adult) (pediatric); G47.00 Insomnia, unspecified; F41.9 Anxiety disorder, unspecified; N18.30 Chronic kidney disease, stage 3 unspecified; F02.80 Dementia in other diseases classified elsewhere, unspecified severity, without behavioral disturbance, psychotic disturbance, mood disturbance, and anxiety; G30.9 Alzheimer's disease, unspecified; E53.8 Deficiency of other specified B group vitamins; R13.10 Dysphagia, unspecified; G89.29 Other chronic pain; Z87.891 Personal history of nicotine dependence; Z79.01 Long term (current) use of anticoagulants; Z79.2 Long term (current) use of antibiotics; Z79.899 Other long term (current) drug therapy; Z88.0 Allergy status to penicillin; Z88.8 Allergy status to other drugs, medicaments and biological substances; M48.061 Spinal stenosis, lumbar region without neurogenic claudication; B96.20 Unspecified Escherichia coli [E. coli] as the cause of diseases classified elsewhere

== ENCOUNTER → 2024-05-23 | Outpatient (REF) | payer MEDICARE, MEDICAID ==
[~2024-05-23] MED LIST changes: +ACET1TAB55 PO; +FURO20TA2 PO; +LEVO1TAB39 PO; +MILKSUS3 PO; +NESI25TA PO; +ONDA-83 PO; +SENN1TAB85 PO; +SODI1TAB12 PO
[2024-05-23 15:48] LABS: BASO % 0.4 % (0.0-1.0); EOS # 0.2 10^3/uL (0.0-0.5); EOS % 2.6 % (0.0-3.0); HEMATOCRIT 41.6 % (42.0-52.0); HEMOGLOBIN 12.7 g/dl (13.5-17.5); LYMPH # 1.9 10^3/uL (1.5-5.0); LYMPH % 20.7 % (24.0-44.0); MEAN CORPUSCULAR HEMOGLOBIN 26.6 pg (27.0-33.0); MEAN CORPUSCULAR HGB CONC 30.5 g/dl (32.0-36.5); MEAN CORPUSCULAR VOLUME 87.2 fl (80.0-96.0); MONO # 1.2 10^3/uL (0.0-0.8); MONO % 12.3 % (2.0-8.0); NEUTROPHILS # 5.9 10^3/uL (1.5-8.5); NEUTROPHILS % 63.4 % (36.0-66.0); PLATELET COUNT, AUTOMATED 371 10^3/uL (150-450); RED BLOOD COUNT 4.77 10^6/uL (4.30-6.10); WHITE BLOOD COUNT 9.3 10^3/uL (4.0-10.0)
[2024-05-23 16:05] LABS: ALBUMIN 2.9 G/DL (3.2-5.2); ALKALINE PHOSPHATASE 98 U/L (46-116); ALT/SGPT 22 U/L (7.0-40); AST/SGOT 18 U/L (<34); BILIRUBIN,TOTAL 0.5 MG/DL (0.3-1.2); BLOOD UREA NITROGEN 25 MG/DL (9-23); CALCIUM LEVEL 9.1 MG/DL (8.3-10.6); CARBON DIOXIDE LEVEL 28 MMOL/L (20-31); CHLORIDE LEVEL 101 MMOL/L (98-107); CREATININE FOR GFR 1.04 MG/DL (0.70-1.30); GLOMERULAR FILTRATION RATE > 60.0 (>35); GLUCOSE, FASTING 206 MG/DL (74-106); POTASSIUM SERUM 4.7 MMOL/L (3.5-5.1); SODIUM LEVEL 133 MMOL/L (136-145); TOTAL PROTEIN 5.8 G/DL (5.7-8.2)
== END ==
LOC: SKLAB4 14:48
PROVIDERS: ATTEND Internal Medicine
DX: I10 Essential (primary) hypertension (principal)

== ENCOUNTER → 2024-05-24 | Outpatient (REF) | payer MEDICARE, MEDICAID | LOC: SKLAB4 11:45 | PROVIDERS: ATTEND Internal Medicine | DX: Z53.8 Procedure and treatment not carried out for other reasons (principal) ==

== ENCOUNTER → 2024-05-26 | Outpatient (REF) | payer MEDICARE, MEDICAID | LOC: SKLAB4 05-25 08:56 | PROVIDERS: ATTEND Internal Medicine | DX: E87.1 Hypo-osmolality and hyponatremia (principal); I50.9 Heart failure, unspecified ==

== ENCOUNTER → 2024-06-15 | Outpatient (REF) | payer MEDICARE, MEDICAID | LOC: SKLAB4 12:44 | PROVIDERS: ATTEND Internal Medicine | DX: R06.02 Shortness of breath (principal) ==

== ENCOUNTER → 2024-07-07 | Outpatient (REF) | payer MEDICARE, MEDICAID ==
[2024-07-07 12:31] LABS: BASO % 0.3 % (0.0-1.0); EOS # 0.3 10^3/uL (0.0-0.5); EOS % 3.2 % (0.0-3.0); HEMATOCRIT 42.6 % (42.0-52.0); HEMOGLOBIN 13.6 g/dl (13.5-17.5); LYMPH # 2.3 10^3/uL (1.5-5.0); LYMPH % 23.5 % (24.0-44.0); MEAN CORPUSCULAR HEMOGLOBIN 28.7 pg (27.0-33.0); MEAN CORPUSCULAR HGB CONC 31.9 g/dl (32.0-36.5); MEAN CORPUSCULAR VOLUME 89.9 fl (80.0-96.0); MONO # 0.9 10^3/uL (0.0-0.8); NEUTROPHILS # 6.1 10^3/uL (1.5-8.5); NEUTROPHILS % 63.4 % (36.0-66.0); PLATELET COUNT, AUTOMATED 308 10^3/uL (150-450); RED BLOOD COUNT 4.74 10^6/uL (4.30-6.10); WHITE BLOOD COUNT 9.7 10^3/uL (4.0-10.0)
[2024-07-07 12:53] LABS: BLOOD UREA NITROGEN 21 MG/DL (9-23); CALCIUM LEVEL 9.2 MG/DL (8.3-10.6); CARBON DIOXIDE LEVEL 29 MMOL/L (20-31); CHLORIDE LEVEL 101 MMOL/L (98-107); CREATININE FOR GFR 0.98 MG/DL (0.70-1.30); GLOMERULAR FILTRATION RATE > 60.0 (>35); GLUCOSE, FASTING 145 MG/DL (74-106); POTASSIUM SERUM 4.5 MMOL/L (3.5-5.1); SODIUM LEVEL 133 MMOL/L (136-145)
== END ==
LOC: SKLAB4 11:36
PROVIDERS: ATTEND Internal Medicine
DX: R53.83 Other fatigue (principal)

== ENCOUNTER → 2024-08-15 | Outpatient (REF) | payer MEDICARE, MEDICAID ==
[~2024-08-15] MED LIST changes: +GABA-1172 PO; -GABA-282 PO
[2024-08-15 11:34] LABS: BLOOD UREA NITROGEN 22 MG/DL (9-23); CALCIUM LEVEL 9.2 MG/DL (8.3-10.6); CARBON DIOXIDE LEVEL 25 MMOL/L (20-31); CHLORIDE LEVEL 103 MMOL/L (98-107); CREATININE FOR GFR 1.02 MG/DL (0.70-1.30); GLOMERULAR FILTRATION RATE > 60.0 (>35); GLUCOSE, FASTING 228 MG/DL (74-106); POTASSIUM SERUM 4.3 MMOL/L (3.5-5.1); SODIUM LEVEL 136 MMOL/L (136-145)
== END ==
LOC: SKLAB4 08:27
PROVIDERS: ATTEND Internal Medicine
DX: I10 Essential (primary) hypertension (principal)

== ENCOUNTER → 2024-08-24 | Outpatient (REF) | payer MEDICARE, MEDICAID | LOC: SKLAB4 07:00 | PROVIDERS: ATTEND Internal Medicine | DX: I50.9 Heart failure, unspecified (principal) ==

== ENCOUNTER → 2024-08-31 | Outpatient (REF) ==
[~2024-08-31] MED LIST changes: +ACET650S3 PR; +ALBU2.5V10 INH; +BISA10SU27 PR; +CEFT1INJ5 IM; +JARD1TAB PO; +MEDREC COMMENT; +TRAM50TA2 PO
[2024-08-31 21:14] LABS: BASO % 0.3 % (0.0-1.0); EOS % 0.1 % (0.0-3.0); HEMATOCRIT 40.7 % (42.0-52.0); HEMOGLOBIN 13.9 g/dl (13.5-17.5); LYMPH # 1.2 10^3/uL (1.5-5.0); LYMPH % 12.2 % (24.0-44.0); MEAN CORPUSCULAR HEMOGLOBIN 30.9 pg (27.0-33.0); MEAN CORPUSCULAR HGB CONC 34.2 g/dl (32.0-36.5); MEAN CORPUSCULAR VOLUME 90.4 fl (80.0-96.0); MONO # 0.7 10^3/uL (0.0-0.8); MONO % 6.9 % (2.0-8.0); NEUTROPHILS # 7.9 10^3/uL (1.5-8.5); NEUTROPHILS % 80.1 % (36.0-66.0); PLATELET COUNT, AUTOMATED 261 10^3/uL (150-450); WHITE BLOOD COUNT 9.9 10^3/uL (4.0-10.0)
[2024-08-31 21:22] LABS: APPEARANCE, URINE HAZY (CLEAR); BACTERIA, URINE AUTO NEGATIVE (NEGATIVE); BILIRUBIN, URINE AUTO NEGATIVE (NEGATIVE); BLOOD, URINE BLOOD 2+ (NEGATIVE); COLOR, URINE YELLOW (YELLOW); GLUCOSE, URINE (UA) AUTO 3+ mg/dL (NEGATIVE); GRANULAR CAST, URINE AUTO 2 /LPF; KETONE, URINE AUTO NEGATIVE (NEGATIVE); LEUKOCYTE ESTERASE, URINE AUTO 1+ (NEGATIVE); MUCUS, URINE SMALL (NEGATIVE); NITRITE, URINE AUTO NEGATIVE (NEGATIVE); PROTEIN, URINE AUTO 2+ mg/dL (NEGATIVE); RBC, URINE AUTO 11 /HPF (0-3); SPECIFIC GRAVITY URINE AUTO 1.022 (1.002-1.035); SQUAMOUS EPITHELIAL CELL UR AU 0 /HPF (0-6); UROBILINOGEN, URINE AUTO 0.2 mg/dL (0.0-2.0); WBC, URINE AUTO 11 /HPF (0-3)
[2024-08-31 21:42] LABS: ALBUMIN 3.1 G/DL (3.2-5.2); ALKALINE PHOSPHATASE 92 U/L (46-116); ALT/SGPT 19 U/L (7.0-40); AST/SGOT 27 U/L (<34); BILIRUBIN,TOTAL 0.7 MG/DL (0.3-1.2); BLOOD UREA NITROGEN 26 MG/DL (9-23); CALCIUM LEVEL 9.3 MG/DL (8.3-10.6); CARBON DIOXIDE LEVEL 22 MMOL/L (20-31); CHLORIDE LEVEL 103 MMOL/L (98-107); CREATININE FOR GFR 1.16 MG/DL (0.70-1.30); GLOMERULAR FILTRATION RATE > 60.0 (>35); GLUCOSE, FASTING 207 MG/DL (74-106); POTASSIUM SERUM 4.2 MMOL/L (3.5-5.1); SODIUM LEVEL 133 MMOL/L (136-145); TOTAL PROTEIN 6.4 G/DL (5.7-8.2)
== END ==
LOC: SKLAB4 18:26
PROVIDERS: ATTEND Internal Medicine
DX: A41.9 Sepsis, unspecified organism (principal)

== ENCOUNTER 2024-09-02 11:35 | Inpatient (IN) | payer MEDICARE, MEDICAID ==
[~2024-09-02] VITALS: Ht 177.8 cm; Wt 80.7 kg
[~2024-09-02 11:35] MED LIST changes: -ACET650S3 PR; -ALBU2.5V10 INH; -BISA10SU27 PR; -CEFT1INJ5 IM; -JARD1TAB PO; -MEDREC COMMENT; -TRAM50TA2 PO
[2024-09-02 12:53] LABS: APPEARANCE, URINE MANUAL CLEAR (CLEAR); COLOR, URINE MANUAL YELLOW (YELLOW); VENOUS BASE EXCESS -2.3 (-2.0-2.0); VENOUS HCO3 21.1 MMOL/L (23.0-27.0); VENOUS O2 SATURATION 93.9 % (60.0-80.0); VENOUS PARTIAL PRESSURE CO2 32.1 mmHg (38.0-50.0); VENOUS PARTIAL PRESSURE O2 66.9 mmHg (30.0-50.0); VENOUS PH 7.435 UNITS (7.330-7.430); VENOUS STANDARD HCO3 22.5 MMOL/L; VENOUS TOTAL CO2 22.1 MMOL/L (24.0-28.0)
[2024-09-02 12:55] LABS: PROTEIN, URINE MANUAL 2+ mg/dL (NEGATIVE); SPECIFIC GRAVITY,URINE MANUAL 1.015 (1.002-1.035)
[2024-09-02 12:56] LABS: BILIRUBIN, URINE MANUAL NEGATIVE (NEGATIVE); BLOOD URINE MANUAL POSITIVE (NEGATIVE); GLUCOSE, URINE (UA) MANUAL 4+(1000 MG/DL) mg/dL (NEGATIVE); KETONE, URINE MANUAL NEGATIVE (NEGATIVE); LEUKOCYTE ESTERASE, URINE MAN POSITIVE (NEGATIVE); NITRITE, URINE MANUAL NEGATIVE (NEGATIVE); UROBILINOGEN, URINE MANUAL NORMAL (NORMAL)
[2024-09-02 12:59] LABS: BACTERIA, URINE SMALL AMOUNT; HYALINE CAST, URINE NONE SEEN /lpf (0-1); RBC, URINE 20-30 /hpf (0-3); SQUAMOUS EPITHELIAL CELL URINE NONE SEEN /hpf (SMALL AMT)
[2024-09-02 13:05] LABS: BASO % 0.1 % (0.0-1.0); EOS % 0.2 % (0.0-3.0); HEMATOCRIT 36.4 % (42.0-52.0); HEMOGLOBIN 12.1 g/dl (13.5-17.5); LYMPH # 1.6 10^3/uL (1.5-5.0); LYMPH % 8.6 % (24.0-44.0); MEAN CORPUSCULAR HEMOGLOBIN 30.3 pg (27.0-33.0); MEAN CORPUSCULAR HGB CONC 33.2 g/dl (32.0-36.5); MONO # 1.5 10^3/uL (0.0-0.8); MONO % 8.3 % (2.0-8.0); NEUTROPHILS % 82.1 % (36.0-66.0); PLATELET COUNT, AUTOMATED 224 10^3/uL (150-450); WHITE BLOOD COUNT 18.2 10^3/uL (4.0-10.0)
[2024-09-02 13:18] LABS: INR 1.6; PROTHROMBIN TIME 19.3 SECONDS (12.5-14.5)
[2024-09-02] MEDS: cefTRIAXone SOD 2 GM in DEXTROSE 5% (D5W) ADV/MINI-BAG 50 ML IV ONE (13:23)
[2024-09-02 13:44] LABS: PROCALCITONIN 1.51 ng/ml
[2024-09-02 13:49] LABS: ALBUMIN 2.6 G/DL (3.2-5.2); ALKALINE PHOSPHATASE 95 U/L (40-129); ALT/SGPT 37 U/L (7.0-40); AST/SGOT 53 U/L (<34); BILIRUBIN,DIRECT 0.2 MG/DL (<0.4); BILIRUBIN,TOTAL 0.5 MG/DL (0.3-1.2); BLOOD UREA NITROGEN 27 MG/DL (9-23); CALCIUM LEVEL 8.9 MG/DL (8.3-10.6); CARBON DIOXIDE LEVEL 22 MMOL/L (20-31); CHLORIDE LEVEL 104 MMOL/L (98-107); CREATININE FOR GFR 1.07 MG/DL (0.70-1.30); GLOMERULAR FILTRATION RATE > 60.0 (>35); GLUCOSE, FASTING 215 MG/DL (74-106); POTASSIUM SERUM 4.1 MMOL/L (3.5-5.1); SODIUM LEVEL 133 MMOL/L (136-145); TOTAL PROTEIN 5.9 G/DL (5.7-8.2)
[2024-09-02] MEDS: LIDOCAINE 2% 5ML JELLY UROJET TOP ONE ×2 (14:34→14:52)
[2024-09-02] MEDS ORDERED: TRAM50TA2 PO (16:11)
[2024-09-02] MEDS ORDERED: ACET650S3 PR (16:11)
[2024-09-02] MEDS ORDERED: CEFT1INJ5 IM (16:11)
[2024-09-02] MEDS ORDERED: JARD1TAB PO (16:11)
[2024-09-02] MEDS ORDERED: ALBU2.5V10 INH (16:13)
[2024-09-02] MEDS ORDERED: BISA10SU27 PR (16:13)
[2024-09-02] MEDS ORDERED: MEDREC COMMENT (16:16)
[2024-09-02] MEDS ORDERED: HOME MED LIST COMPLETE! XX SCH (16:20)
[2024-09-02] MEDS: AZITHROMYCIN 250MG TABLET PO SCH (17:04)
[2024-09-02] MEDS: CEFEPIME HCL 2 GM in DEXTROSE 5% (D5W) ADV/MINI-BAG 50 ML IV SCH (17:04)
[2024-09-02 17:15] VITALS: BP 172/68; TEMP 100.4; O2SAT 94
[2024-09-02] MEDS ORDERED: MORPHINE 2 MG/ML 1ML VIAL IV PRN (17:50)
[2024-09-02] MEDS ORDERED: GLUCAGON INJ 1MG VIAL SC PRN (17:55)
[2024-09-02] MEDS ORDERED: GLUCOSE 4 GM CHEW PO PRN (17:55)
[2024-09-02] MEDS ORDERED: DEXTROSE 50% 50ML SYRINGE IV PRN (17:55)
[2024-09-02 18:41] VITALS: BP 166/84; TEMP 100; O2SAT 92
[2024-09-02] MEDS: ACETAMINOPHEN 325 MG TAB PO PRN (19:00)
[2024-09-02 19:52] VITALS: BP 165/70; TEMP 97.6; O2SAT 94
[2024-09-02] MEDS: INSULIN LISPRO (NovoLOG) PER UNIT SC SCH (21:00)
[2024-09-02] MEDS: MUPIROCIN 2% OINT 22 GM TUBE TOP SCH (21:00)
[2024-09-02] MEDS: CHLORHEXIDINE GLUCONATE 0.12 % 15ML UDC (PERIDEX ORAL RINSE) SSP SCH (21:01)
[2024-09-02] MEDS: traMADol 50 MG TAB PO PRN (21:01)
[2024-09-02] MEDS: SODIUM CHLORIDE 1 GM TAB PO SCH (21:02)
[2024-09-02] MEDS: GABAPENTIN 100 MG CAP PO SCH (21:02)
[2024-09-02] MEDS: busPIRone 5 MG TAB PO SCH (21:02)
[2024-09-02] MEDS: METOPROLOL TART 25 MG TABLET PO SCH (21:02)
[2024-09-02] MEDS: ENOXAPARIN 80MG/0.8ML SYRINGE (J1650 PER 10MG) SC SCH (21:03)
[2024-09-02] MEDS: VANCOMYCIN 1,500 MG/300 ML IV BAG *LOAD IV ONE (21:23)
[2024-09-02 22:55] VITALS: BP 180/85; TEMP 102.3; O2SAT 88
[2024-09-02] MEDS: IPRATROPIUM 0.5MG/ALBUTEROL 2.5MG INH SOL UD 3ML (DUONEB) NEB SCH (23:00)
[2024-09-02] MEDS: ACETAMINOPHEN *IV* 1,000 MG in IV 1 EA IV ONE (23:00)
[2024-09-03] VITALS (10 sets, daily range): BP systolic 109–163; BP diastolic 53–70; TEMP 95.3–102.9; O2SAT 91–97
[2024-09-03] MEDS: KETOROLAC 30 MG/ML 1ML VIAL IV PRN (02:01)
[2024-09-03 06:36] LABS: HEMATOCRIT 36.3 % (42.0-52.0); HEMOGLOBIN 11.7 g/dl (13.5-17.5); MEAN CORPUSCULAR HEMOGLOBIN 30.1 pg (27.0-33.0); MEAN CORPUSCULAR HGB CONC 32.2 g/dl (32.0-36.5); MEAN CORPUSCULAR VOLUME 93.3 fl (80.0-96.0); PLATELET COUNT, AUTOMATED 222 10^3/uL (150-450); RED BLOOD COUNT 3.89 10^6/uL (4.30-6.10); WHITE BLOOD COUNT 18.5 10^3/uL (4.0-10.0)
[2024-09-03 06:59] LABS: CALCIUM LEVEL 8.9 MG/DL (8.3-10.6); CREATININE FOR GFR 1.33 MG/DL (0.70-1.30); GLOMERULAR FILTRATION RATE 53.9 (>35); POTASSIUM SERUM 3.8 MMOL/L (3.5-5.1)
[2024-09-03] MEDS: INSULIN LISPRO (NovoLOG) PER UNIT SC SCH (08:37)
[2024-09-03] MEDS: DULoxetine 20MG CAP (CYMBALTA) PO SCH (08:38)
[2024-09-03] MEDS: NS 1,000 ML IV SCH (10:50)
[2024-09-03 11:20] LABS: TOTAL PROTEIN 5.8 G/DL (5.7-8.2)
[2024-09-03 12:41] LABS: SOURCE, BODY FLUID pH PLEURAL
[2024-09-03 12:42] LABS: APPEARANCE, BODY FLUID HAZY (CLEAR); PLEURAL FL COLOR YELLOW (COLORLESS); SOURCE, BODY FLUID PLEURAL
[2024-09-03 12:46] LABS: PH BODY FLUID > 7.800 UNITS (NOT ESTABLISHED)
[2024-09-03 13:08] LABS: SOURCE, BODY FLUID GLUCOSE PLEURAL
[2024-09-03] MEDS: CEFEPIME HCL 2 GM in DEXTROSE 5% (D5W) ADV/MINI-BAG 50 ML IV SCH (13:11)
[2024-09-03 13:19] LABS: LDH, BODY FLUID > 750 U/L (NOT ESTABLISHED); SOURCE, BODY FLUID LDH PLEURAL
[2024-09-03] MEDS: VANCOMYCIN 1,250 MG/250 ML IV BAG IV SCH (14:39)
[2024-09-03 20:16] LABS: SOURCE, BODY FLUID TOT PROTEIN PLEURAL
[2024-09-04] VITALS (7 sets, daily range): BP systolic 102–158; BP diastolic 54–77; TEMP 97.1–98.5; O2SAT 94–96
[2024-09-04 06:12] LABS: BASO % 0.2 % (0.0-1.0); EOS # 0.1 10^3/uL (0.0-0.5); EOS % 0.8 % (0.0-3.0); HEMATOCRIT 35.6 % (42.0-52.0); HEMOGLOBIN 11.7 g/dl (13.5-17.5); LYMPH # 1.6 10^3/uL (1.5-5.0); LYMPH % 13.1 % (24.0-44.0); MEAN CORPUSCULAR HEMOGLOBIN 30.5 pg (27.0-33.0); MEAN CORPUSCULAR HGB CONC 32.9 g/dl (32.0-36.5); MONO # 1.1 10^3/uL (0.0-0.8); MONO % 8.8 % (2.0-8.0); NEUTROPHILS # 9.3 10^3/uL (1.5-8.5); NEUTROPHILS % 76.4 % (36.0-66.0); PLATELET COUNT, AUTOMATED 224 10^3/uL (150-450); RED BLOOD COUNT 3.83 10^6/uL (4.30-6.10); WHITE BLOOD COUNT 12.1 10^3/uL (4.0-10.0)
[2024-09-04 06:30] LABS: BLOOD UREA NITROGEN 29 MG/DL (9-23); CALCIUM LEVEL 8.5 MG/DL (8.3-10.6); CARBON DIOXIDE LEVEL 19 MMOL/L (20-31); CHLORIDE LEVEL 105 MMOL/L (98-107); CREATININE FOR GFR 1.17 MG/DL (0.70-1.30); GLOMERULAR FILTRATION RATE > 60.0 (>35); GLUCOSE, FASTING 185 MG/DL (74-106); POTASSIUM SERUM 3.5 MMOL/L (3.5-5.1); SODIUM LEVEL 134 MMOL/L (136-145)
[2024-09-04] MEDS: CEFEPIME HCL 2 GM in DEXTROSE 5% (D5W) ADV/MINI-BAG 50 ML IV SCH (15:32)
[2024-09-04] MEDS: LEVEMIR (INSULIN DETEMIR) 1 UNITS/0.01ML SC SCH (20:59)
[2024-09-05] VITALS (12 sets, daily range): BP systolic 123–164; BP diastolic 52–75; TEMP 96.9–98.3; O2SAT 95–98
[2024-09-05 05:48] LABS: BASO % 0.2 % (0.0-1.0); EOS # 0.1 10^3/uL (0.0-0.5); EOS % 1.1 % (0.0-3.0); HEMATOCRIT 36.7 % (42.0-52.0); HEMOGLOBIN 12.3 g/dl (13.5-17.5); LYMPH # 1.5 10^3/uL (1.5-5.0); LYMPH % 11.5 % (24.0-44.0); MEAN CORPUSCULAR HGB CONC 33.5 g/dl (32.0-36.5); MEAN CORPUSCULAR VOLUME 89.5 fl (80.0-96.0); MONO # 1.4 10^3/uL (0.0-0.8); MONO % 10.8 % (2.0-8.0); NEUTROPHILS # 9.8 10^3/uL (1.5-8.5); NEUTROPHILS % 75.7 % (36.0-66.0); PLATELET COUNT, AUTOMATED 236 10^3/uL (150-450); WHITE BLOOD COUNT 12.9 10^3/uL (4.0-10.0)
[2024-09-05 06:15] LABS: BLOOD UREA NITROGEN 23 MG/DL (9-23); CALCIUM LEVEL 8.7 MG/DL (8.3-10.6); CARBON DIOXIDE LEVEL 20 MMOL/L (20-31); CHLORIDE LEVEL 105 MMOL/L (98-107); CREATININE FOR GFR 0.93 MG/DL (0.70-1.30); GLOMERULAR FILTRATION RATE > 60.0 (>35); GLUCOSE, FASTING 190 MG/DL (74-106); POTASSIUM SERUM 3.2 MMOL/L (3.5-5.1); SODIUM LEVEL 135 MMOL/L (136-145)
[2024-09-05] MEDS: POTASSIUM CHLORIDE 10MEQ SR TABLET PO ONE (08:13)
[2024-09-05] MEDS: VANCOMYCIN 1,500 MG/300 ML IV BAG IV SCH (10:21)
[2024-09-05] MEDS: CEPACOL LOZENGE PO PRN (12:43)
[2024-09-05] MEDS: CHLORASEPTIC SPRAY MT PRN (16:14)
[2024-09-06] VITALS (31 sets, daily range): BP systolic 60–154; BP diastolic 36–74; TEMP 96.7–100; O2SAT 91–99
[2024-09-06 05:04] LABS: BASO % 0.3 % (0.0-1.0); EOS # 0.3 10^3/uL (0.0-0.5); EOS % 1.7 % (0.0-3.0); HEMATOCRIT 40.4 % (42.0-52.0); HEMOGLOBIN 13.2 g/dl (13.5-17.5); LYMPH # 2.1 10^3/uL (1.5-5.0); LYMPH % 14.1 % (24.0-44.0); MEAN CORPUSCULAR HEMOGLOBIN 29.9 pg (27.0-33.0); MEAN CORPUSCULAR HGB CONC 32.7 g/dl (32.0-36.5); MEAN CORPUSCULAR VOLUME 91.4 fl (80.0-96.0); MONO # 1.8 10^3/uL (0.0-0.8); MONO % 12.1 % (2.0-8.0); NEUTROPHILS # 10.3 10^3/uL (1.5-8.5); NEUTROPHILS % 70.8 % (36.0-66.0); PLATELET COUNT, AUTOMATED 294 10^3/uL (150-450); RED BLOOD COUNT 4.42 10^6/uL (4.30-6.10); WHITE BLOOD COUNT 14.6 10^3/uL (4.0-10.0)
[2024-09-06 05:27] LABS: BLOOD UREA NITROGEN 22 MG/DL (9-23); CARBON DIOXIDE LEVEL 23 MMOL/L (20-31); CHLORIDE LEVEL 107 MMOL/L (98-107); CREATININE FOR GFR 0.94 MG/DL (0.70-1.30); GLOMERULAR FILTRATION RATE > 60.0 (>35); GLUCOSE, FASTING 176 MG/DL (74-106); MAGNESIUM LEVEL 1.8 MG/DL (1.8-2.4); POTASSIUM SERUM 3.5 MMOL/L (3.5-5.1); SODIUM LEVEL 136 MMOL/L (136-145)
[2024-09-06] MEDS ORDERED: NS 50 ML SYRINGE INTRAPLEU ONE (09:45)
[2024-09-06] MEDS: SODIUM CHLORIDE 0.9% 50 ML IPL ONE (11:26)
[2024-09-06] MEDS: PULMOZYME 5MG IN NS 55ML SYRINGE INTRAPLEU ONE (11:27)
[2024-09-06] MEDS: ALTEPLASE 10MG IN NS 60ML SYRINGE INTRAPLEU ONE (11:27)
[2024-09-06] MEDS: ENOXAPARIN 40MG/0.4ML SYRINGE (J1650 PER 10MG) SC SCH (13:15)
[2024-09-06] MEDS: ACETAMINOPHEN *IV* 1,000 MG in IV 1 EA IV ONE (14:54)
[2024-09-06] MEDS: NS 1,000 ML IV ONE ×2 (19:17→21:00)
[2024-09-06 20:17] LABS: BASO # 0.1 10^3/uL (0.0-0.2); BASO % 0.4 % (0.0-1.0); EOS # 0.1 10^3/uL (0.0-0.5); EOS % 0.6 % (0.0-3.0); HEMATOCRIT 36.6 % (42.0-52.0); HEMOGLOBIN 11.5 g/dl (13.5-17.5); LYMPH % 11.8 % (24.0-44.0); MEAN CORPUSCULAR HEMOGLOBIN 30.6 pg (27.0-33.0); MEAN CORPUSCULAR HGB CONC 31.4 g/dl (32.0-36.5); MEAN CORPUSCULAR VOLUME 97.3 fl (80.0-96.0); MONO # 2.1 10^3/uL (0.0-0.8); MONO % 8.5 % (2.0-8.0); NEUTROPHILS # 18.7 10^3/uL (1.5-8.5); NEUTROPHILS % 74.7 % (36.0-66.0); PLATELET COUNT, AUTOMATED 328 10^3/uL (150-450); RED BLOOD COUNT 3.76 10^6/uL (4.30-6.10)
[2024-09-06 20:21] LABS: INR 1.26; PARTIAL THROMBOPLASTIN TIME 31.2 SECONDS (24.8-34.2); PROTHROMBIN TIME 16.1 SECONDS (12.5-14.5)
[2024-09-06] MEDS ORDERED: ISOVUE-370 76% 100ML VIAL As Ordered ONE (20:23)
[2024-09-06 20:38] LABS: ALBUMIN 1.9 G/DL (3.2-5.2); BILIRUBIN,TOTAL 0.6 MG/DL (0.3-1.2); CALCIUM LEVEL 8.5 MG/DL (8.3-10.6); CREATININE FOR GFR 1.36 MG/DL (0.70-1.30); GLOMERULAR FILTRATION RATE 52.5 (>35); MAGNESIUM LEVEL 1.9 MG/DL (1.8-2.4); POTASSIUM SERUM 4.1 MMOL/L (3.5-5.1); TOTAL PROTEIN 5.5 G/DL (5.7-8.2)
[2024-09-06] MEDS: TRANEXAMIC ACID IV SCH (21:28)
[2024-09-06] MEDS: D5W IV SCH (21:28)
[2024-09-06 22:31] LABS: VENOUS BASE EXCESS -13.9 (-2.0-2.0); VENOUS HCO3 14.5 MMOL/L (23.0-27.0); VENOUS O2 SATURATION 28.7 % (60.0-80.0); VENOUS PARTIAL PRESSURE CO2 43.9 mmHg (38.0-50.0); VENOUS PARTIAL PRESSURE O2 25.5 mmHg (30.0-50.0); VENOUS PH 7.138 UNITS (7.330-7.430); VENOUS STANDARD HCO3 12.6 MMOL/L; VENOUS TOTAL CO2 15.9 MMOL/L (24.0-28.0)
[2024-09-07] VITALS (25 sets, daily range): BP systolic 110–156; BP diastolic 56–76; TEMP 96.4–97.8; O2SAT 92–100
[2024-09-07 02:00] LABS: VENOUS BASE EXCESS -9.3 (-2.0-2.0); VENOUS HCO3 17.4 MMOL/L (23.0-27.0); VENOUS O2 SATURATION 25.8 % (60.0-80.0); VENOUS PARTIAL PRESSURE CO2 40.2 mmHg (38.0-50.0); VENOUS PH 7.253 UNITS (7.330-7.430); VENOUS STANDARD HCO3 15.6 MMOL/L; VENOUS TOTAL CO2 18.6 MMOL/L (24.0-28.0)
[2024-09-07 02:30] LABS: CALCIUM LEVEL 7.9 MG/DL (8.3-10.6); CREATININE FOR GFR 1.47 MG/DL (0.70-1.30); POTASSIUM SERUM 4.5 MMOL/L (3.5-5.1)
[2024-09-07 07:35] LABS: BASO # 0.1 10^3/uL (0.0-0.2); BASO % 0.3 % (0.0-1.0); EOS # 0.1 10^3/uL (0.0-0.5); EOS % 0.3 % (0.0-3.0); HEMATOCRIT 36.5 % (42.0-52.0); LYMPH # 2.5 10^3/uL (1.5-5.0); LYMPH % 11.4 % (24.0-44.0); MEAN CORPUSCULAR HGB CONC 32.9 g/dl (32.0-36.5); MEAN CORPUSCULAR VOLUME 94.3 fl (80.0-96.0); MONO # 2.3 10^3/uL (0.0-0.8); MONO % 10.3 % (2.0-8.0); NEUTROPHILS # 16.5 10^3/uL (1.5-8.5); PLATELET COUNT, AUTOMATED 344 10^3/uL (150-450); RED BLOOD COUNT 3.87 10^6/uL (4.30-6.10); WHITE BLOOD COUNT 22.3 10^3/uL (4.0-10.0)
[2024-09-07 08:01] LABS: C REACTIVE PROTEIN QUANTITATIV 18.1 MG/DL (<1.0)
[2024-09-07 08:03] LABS: CALCIUM LEVEL 8.4 MG/DL (8.3-10.6); CREATININE FOR GFR 1.7 MG/DL (0.70-1.30); GLOMERULAR FILTRATION RATE 40.6 (>35); MAGNESIUM LEVEL 1.9 MG/DL (1.8-2.4); POTASSIUM SERUM 4.3 MMOL/L (3.5-5.1)
[2024-09-07] MEDS ORDERED: MAGIC MOUTHWASH 5ML ORAL SYRINGE SS PRN (08:05)
[2024-09-07] MEDS: PANTOPRAZOLE 40MG VIAL IV SCH (08:37)
[2024-09-07] MEDS: SUCRALFATE SUSP 1GM/10ML UD PO SCH (08:38)
[2024-09-07] MEDS ORDERED: PANTOPRAZOLE 40MG VIAL IV SCH (09:00)
[2024-09-07] MEDS: FUROSEMIDE 100MG/10ML VIAL IV ONE (10:56)
[2024-09-07 13:30] LABS: HEMATOCRIT 33.3 % (42.0-52.0); MEAN CORPUSCULAR HEMOGLOBIN 30.4 pg (27.0-33.0); PLATELET COUNT, AUTOMATED 336 10^3/uL (150-450); RED BLOOD COUNT 3.62 10^6/uL (4.30-6.10); WHITE BLOOD COUNT 21.5 10^3/uL (4.0-10.0)
[2024-09-07 18:25] LABS: HEMOGLOBIN 11.5 g/dl (13.5-17.5)
[2024-09-07] MEDS: IPRATROPIUM 0.5MG/ALBUTEROL 2.5MG INH SOL UD 3ML (DUONEB) NEB PRN (22:08)
[2024-09-07 23:47] LABS: URINE STREP PNEUMONIAE ANTIGEN NOT DETECTED (NOT DETECT)
[2024-09-08] VITALS (18 sets, daily range): BP systolic 101–154; BP diastolic 52–68; TEMP 97.1–98.1; O2SAT 87–100
[2024-09-08 00:46] LABS: HEMATOCRIT 30.7 % (42.0-52.0); HEMOGLOBIN 10.1 g/dl (13.5-17.5)
[2024-09-08 08:52] LABS: BASO # 0.1 10^3/uL (0.0-0.2); BASO % 0.3 % (0.0-1.0); EOS # 0.4 10^3/uL (0.0-0.5); EOS % 1.8 % (0.0-3.0); HEMATOCRIT 30.3 % (42.0-52.0); HEMOGLOBIN 9.9 g/dl (13.5-17.5); LYMPH # 1.7 10^3/uL (1.5-5.0); LYMPH % 8.3 % (24.0-44.0); MEAN CORPUSCULAR HEMOGLOBIN 30.7 pg (27.0-33.0); MEAN CORPUSCULAR HGB CONC 32.7 g/dl (32.0-36.5); MEAN CORPUSCULAR VOLUME 94.1 fl (80.0-96.0); MONO # 1.7 10^3/uL (0.0-0.8); MONO % 8.3 % (2.0-8.0); NEUTROPHILS % 78.6 % (36.0-66.0); PLATELET COUNT, AUTOMATED 349 10^3/uL (150-450); RED BLOOD COUNT 3.22 10^6/uL (4.30-6.10); WHITE BLOOD COUNT 20.3 10^3/uL (4.0-10.0)
[2024-09-08] MEDS: NYSTATIN 500,000U/5ML SUSP UDC SS SCH (08:54)
[2024-09-08] MEDS: PANTOPRAZOLE 40MG TAB (PROTONIX) PO SCH (08:55)
[2024-09-08] MEDS: IPRATROPIUM 0.5MG/ALBUTEROL 2.5MG INH SOL UD 3ML (DUONEB) NEB SCH (09:01)
[2024-09-08 09:18] LABS: CALCIUM LEVEL 8.2 MG/DL (8.3-10.6); CREATININE FOR GFR 2.6 MG/DL (0.70-1.30); GLOMERULAR FILTRATION RATE 24.9 (>35); MAGNESIUM LEVEL 1.9 MG/DL (1.8-2.4); POTASSIUM SERUM 3.8 MMOL/L (3.5-5.1)
[2024-09-08 09:19] LABS: C REACTIVE PROTEIN QUANTITATIV 18.5 MG/DL (<1.0)
[2024-09-08] MEDS: DOXYCYCLINE HYCLATE 100MG TABLET PO SCH (11:08)
[2024-09-08] MEDS: FUROSEMIDE 100MG/10ML VIAL IV ONE (11:08)
[2024-09-08] MEDS: METOPROLOL TART 25 MG TABLET PO SCH (14:46)
[2024-09-08] MEDS: MAGIC MOUTHWASH 5ML ORAL SYRINGE SS PRN (18:18)
[2024-09-08] MEDS: QUEtiapine FUMARATE 12.5 MG HALF-TAB PO SCH (20:48)
[2024-09-09] VITALS (16 sets, daily range): BP systolic 109–150; BP diastolic 53–70; TEMP 97–98.6; O2SAT 88–100
[2024-09-09] MEDS: MORPHINE 2 MG/ML 1ML VIAL IV ONE (09:25)
[2024-09-09 09:46] LABS: BASO # 0.1 10^3/uL (0.0-0.2); BASO % 0.3 % (0.0-1.0); EOS # 0.3 10^3/uL (0.0-0.5); EOS % 1.3 % (0.0-3.0); HEMATOCRIT 32.2 % (42.0-52.0); HEMOGLOBIN 10.7 g/dl (13.5-17.5); LYMPH # 1.5 10^3/uL (1.5-5.0); LYMPH % 7.7 % (24.0-44.0); MEAN CORPUSCULAR HEMOGLOBIN 31.2 pg (27.0-33.0); MEAN CORPUSCULAR HGB CONC 33.2 g/dl (32.0-36.5); MEAN CORPUSCULAR VOLUME 93.9 fl (80.0-96.0); MONO # 1.6 10^3/uL (0.0-0.8); MONO % 8.4 % (2.0-8.0); NEUTROPHILS # 15.3 10^3/uL (1.5-8.5); NEUTROPHILS % 80.2 % (36.0-66.0); PLATELET COUNT, AUTOMATED 391 10^3/uL (150-450); RED BLOOD COUNT 3.43 10^6/uL (4.30-6.10)
[2024-09-09 09:58] LABS: C REACTIVE PROTEIN QUANTITATIV 23.3 MG/DL (<1.0)
[2024-09-09 09:59] LABS: CALCIUM LEVEL 8.5 MG/DL (8.3-10.6); CREATININE FOR GFR 2.76 MG/DL (0.70-1.30); GLOMERULAR FILTRATION RATE 23.2 (>35); POTASSIUM SERUM 3.5 MMOL/L (3.5-5.1)
[2024-09-09] MEDS: FLUCONAZOLE 100 MG TAB PO SCH (13:09)
[2024-09-09] MEDS: QUEtiapine FUMARATE 25 MG TAB PO SCH (20:43)
[2024-09-10] VITALS (15 sets, daily range): BP systolic 110–141; BP diastolic 53–63; TEMP 96.9–97.6; O2SAT 91–100
[2024-09-10 06:10] LABS: BASO % 0.3 % (0.0-1.0); EOS # 0.3 10^3/uL (0.0-0.5); EOS % 1.9 % (0.0-3.0); HEMOGLOBIN 10.2 g/dl (13.5-17.5); LYMPH # 1.5 10^3/uL (1.5-5.0); LYMPH % 9.9 % (24.0-44.0); MEAN CORPUSCULAR HEMOGLOBIN 30.6 pg (27.0-33.0); MEAN CORPUSCULAR HGB CONC 32.9 g/dl (32.0-36.5); MEAN CORPUSCULAR VOLUME 93.1 fl (80.0-96.0); MONO # 1.5 10^3/uL (0.0-0.8); MONO % 9.8 % (2.0-8.0); NEUTROPHILS # 11.3 10^3/uL (1.5-8.5); NEUTROPHILS % 75.6 % (36.0-66.0); PLATELET COUNT, AUTOMATED 361 10^3/uL (150-450); RED BLOOD COUNT 3.33 10^6/uL (4.30-6.10); WHITE BLOOD COUNT 14.9 10^3/uL (4.0-10.0)
[2024-09-10 06:32] LABS: C REACTIVE PROTEIN QUANTITATIV 23.8 MG/DL (<1.0)
[2024-09-10 06:33] LABS: CALCIUM LEVEL 8.4 MG/DL (8.3-10.6); CREATININE FOR GFR 2.78 MG/DL (0.70-1.30); POTASSIUM SERUM 3.6 MMOL/L (3.5-5.1)
[2024-09-10] MEDS ORDERED: APIXABAN 2.5 MG TAB (ELIQUIS) PO SCH (09:00)
[2024-09-10] MEDS: DOXYCYCLINE HYCLATE 100 MG in DEXTROSE 5% (D5W) MINI-BAG PLU 100 ML IV SCH (13:12)
[2024-09-10] MEDS: PANTOPRAZOLE 40MG VIAL IV SCH (13:12)
[2024-09-10] MEDS: D5W/0.9% SODIUM CHLORIDE 1,000 ML IV SCH (13:13)
[2024-09-10] MEDS: FLUCONAZOLE 100 MG in IV 1 EA IV SCH (15:09)
[2024-09-10] MEDS ORDERED: SCOPOLAMINE 1MG TRANSDERMAL PATCH TOP PRN (17:25)
[2024-09-10] MEDS ORDERED: LORazepam 2 MG/ML 1ML VIAL IV PRN (17:25)
[2024-09-10] MEDS: CHLORASEPTIC SPRAY MT PRN (20:13)
[2024-09-10] MEDS: IPRATROPIUM 0.5MG/ALBUTEROL 2.5MG INH SOL UD 3ML (DUONEB) NEB PRN (20:32)
[2024-09-10] MEDS: MORPHINE 2 MG/ML 1ML VIAL IV PRN (21:26)
[2024-09-11] MEDS ORDERED: BENZ1LOZ9 PO (10:54)
[2024-09-11] MEDS ORDERED: ATIV1TAB10 PO (10:54)
[2024-09-11] MEDS ORDERED: MORP1SOL5 PO (10:54)
[2024-09-11] MEDS ORDERED: HYOS125TA PO (10:54)
[2024-09-11] MEDS ORDERED: MAGICMW SS (10:54)
[2024-09-11] MEDS ORDERED: NYST-38 SS (10:54)
== END 2024-09-11 13:18 | DRG 698 ==
LOC: EDBD 11:35 → M ED 11:35 → M ED INP 15:54 → EEVIPCON 15:54 → M PCU 17:15
PROVIDERS: ADMIT Internal Medicine; ATTEND Internal Medicine
PROC: 0W9B3ZZ Drainage of Left Pleural Cavity, Percutaneous Approach (ICD-10-PCS; principal; 2024-09-03)
PROC: 0W9B30Z Drainage of Left Pleural Cavity with Drainage Device, Percutaneous Approach (ICD-10-PCS; 2024-09-05)
PROC: B246ZZZ Ultrasonography of Right and Left Heart (ICD-10-PCS; 2024-09-05)
PROC: 30233N1 Transfusion of Nonautologous Red Blood Cells into Peripheral Vein, Percutaneous Approach (ICD-10-PCS; 2024-09-06)
DX: T83.511A Infection and inflammatory reaction due to indwelling urethral catheter, initial encounter (principal); A41.9 Sepsis, unspecified organism; J18.9 Pneumonia, unspecified organism; J86.9 Pyothorax without fistula; R57.8 Other shock; R57.1 Hypovolemic shock; I48.20 Chronic atrial fibrillation, unspecified; E22.2 Syndrome of inappropriate secretion of antidiuretic hormone; J90 Pleural effusion, not elsewhere classified; J98.11 Atelectasis; N17.9 Acute kidney failure, unspecified; J44.0 Chronic obstructive pulmonary disease with (acute) lower respiratory infection; D62 Acute posthemorrhagic anemia; J94.2 Hemothorax; E87.20 Acidosis, unspecified; F05 Delirium due to known physiological condition; B49 Unspecified mycosis; Z51.5 Encounter for palliative care; Z66 Do not resuscitate; Y84.6 Urinary catheterization as the cause of abnormal reaction of the patient, or of later complication, without mention of misadventure at the time of the procedure; G30.9 Alzheimer's disease, unspecified; F02.80 Dementia in other diseases classified elsewhere, unspecified severity, without behavioral disturbance, psychotic disturbance, mood disturbance, and anxiety; E11.42 Type 2 diabetes mellitus with diabetic polyneuropathy; F32.A Depression, unspecified; N40.1 Benign prostatic hyperplasia with lower urinary tract symptoms; R33.9 Retention of urine, unspecified; I95.1 Orthostatic hypotension; E78.5 Hyperlipidemia, unspecified; K21.9 Gastro-esophageal reflux disease without esophagitis; M17.0 Bilateral primary osteoarthritis of knee; K59.09 Other constipation; M54.9 Dorsalgia, unspecified; G47.00 Insomnia, unspecified; F41.9 Anxiety disorder, unspecified; E55.9 Vitamin D deficiency, unspecified; R13.10 Dysphagia, unspecified; R53.1 Weakness; G89.29 Other chronic pain; M25.552 Pain in left hip; B96.5 Pseudomonas (aeruginosa) (mallei) (pseudomallei) as the cause of diseases classified elsewhere; B95.62 Methicillin resistant Staphylococcus aureus infection as the cause of diseases classified elsewhere; K12.0 Recurrent oral aphthae; J43.9 Emphysema, unspecified; I10 Essential (primary) hypertension; I25.10 Atherosclerotic heart disease of native coronary artery without angina pectoris; G47.33 Obstructive sleep apnea (adult) (pediatric); N39.0 Urinary tract infection, site not specified; Z87.891 Personal history of nicotine dependence; Z88.0 Allergy status to penicillin; Z88.8 Allergy status to other drugs, medicaments and biological substances; Z79.899 Other long term (current) drug therapy; Z79.51 Long term (current) use of inhaled steroids; Z79.01 Long term (current) use of anticoagulants